=== PATIENT | male | born 1955 | race Caucasian/White ===

== ENCOUNTER 2019-01-03 18:17 | Inpatient (IN) | payer MEDICARE, MEDICAID ==
[~2019-01-03] VITALS: Ht 175.3 cm; Wt 94.0 kg
--- NOTE | 2019-01-03 18:20 | ED.ADGEN ---
Past History Past Medical History: CAD, COPD, CVA, Dementia, Other Smoking: Cigarettes Adult General Chief Complaint Chief Complaint ".. I only smoke 6 cigarettes a day... " ".. Let me out of this fucking stupid hole.. " "God timothy mother fuckers.. I will fucking you up.. I will mess all you up . .... if you touch.. me .. Let me fucking go back to [place]... where I can smoke..."..." Ass holes... stupid" HPI HPI Patient is a 63 year old male who presents with above hx and complaints. Pt. sent for admission to [facility] under Dr. Meyer for mental status change. Pt. are resident of [facility] since 02/19/2016. Pt. reportedly behavior changes, threats, aggression over his tobacco use. Difficult to redirect and argumentative.. Pt. had no recent trauma. Patient has long medical history of osteoarthritis, essential tremor, CVA, coronary artery disease, COPD, muscle weakness, seasonal allergic rhinitis, vitamin D deficiency dysphagia, hyperlipidemia, schizophrenia, osteoarthritis, insomnia, any pain, chronic constipation, and dementia. Patient follows with Dr. Dela Cruz as a primary. Review of Systems Review of Systems Pt. has no specific complaints- but very poor historian Constitutional: Denies fever or chills [] Eyes: Denies change in visual acuity, redness, or eye pain [] HENT: Denies nasal congestion or sore throat [] Respiratory: Denies cough or shortness of breath [] Cardiovascular: No additional information not addressed in HPI [] GI: Denies abdominal pain, nausea, vomiting, bloody stools or diarrhea [] : Denies dysuria or hematuria [] Musculoskeletal: Denies back pain or joint pain [] Integument: Denies rash or skin lesions [] Neurologic: Denies headache, focal weakness or sensory changes [] Endocrine: Denies polyuria or polydipsia [] All other systems were reviewed and found to be within normal limits, except as documented in this note. Family History Family History Currently un available Current Medications Current Medications Current Medications Medications (Trade) Dose Ordered Sig/Malick Start Time Stop Time Status Last Admin Dose Admin Albuterol/ Ipratropium (Duoneb) 3 ml RTQID 01/03/19 21:30 01/05/19 21:29 Diphenhydramine HCl (Benadryl) 50 mg 1X ONCE 01/03/19 19:30 01/03/19 19:31 DC Lactated Ringer's 1,000 ml @ 100 mls/hr Q10H 01/03/19 19:03 01/04/19 05:02 Lorazepam (Ativan Inj) 2 mg 1X ONCE 01/03/19 19:30 01/03/19 19:31 DC Olanzapine (ZyPREXA IM) 10 mg 1X ONCE 01/03/19 20:15 01/03/19 20:16 DC See med list not yet sent by [facility] Allergies Allergies Allergies Coded Allergies Type Severity Reaction Last Updated Verified No Known Drug Allergies 01/03/19 No No known drug allergies Physical Exam Physical Exam Constitutional: no acute distress, non-toxic appearance. [] HENT: Normocephalic, atraumatic, bilateral external ears normal, oropharynx moist, no oral exudates, nose normal. [] Eyes: PERRLA, EOMI, conjunctiva normal, no discharge. [] Neck: Normal range of motion, no tenderness, supple, no stridor. [] Nodule left sided neck Cardiovascular: Tachycardia Heart rate regular rhythm, no murmur [] Lungs & Thorax: Bilateral breath sounds equal apex with scattered wheezes on auscultation [] Abdomen: Bowel sounds normal, soft, no tenderness, no masses, no pulsatile masses. [] Skin: Warm, dry, no erythema, no rash. [] Back: No tenderness, no CVA tenderness. Kyphosis Extremities: No tenderness, no cyanosis, no clubbing, ROM intact, lower leg edema. [] Neurologic: Alert and oriented X 2, moves all extremities on request, distal sensory,, Psychologic: Affect angry, agitated, judgement impaired, mood normal. []Yelling and threatening emergency department staff. Current Patient Data Vital Signs Vital Signs Date Time Temp Pulse Resp B/P (MAP) Pulse Ox O2 Delivery O2 Flow Rate FiO2 01/03/19 18:25 97.9 91 24 92 Room Air Lab Results Laboratory Tests Test 01/03/19 18:40 01/03/19 18:51 White Blood Count 8.6 x10^3/uL (4.0-11.0) Red Blood Count 4.73 x10^6/uL (4.30-5.70) Hemoglobin 13.8 g/dL (13.0-17.5) Hematocrit 40.8 % (39.0-53.0) Mean Corpuscular Volume 86 fL (79-100) Mean Corpuscular Hemoglobin 29 pg (25-35) Mean Corpuscular Hemoglobin Concent 34 g/dL (31-37) Red Cell Distribution Width 14.4 % (11.5-14.5) Platelet Count 156 x10^3/uL (140-400) Neutrophils (%) (Auto) 54 % (31-73) Lymphocytes (%) (Auto) 37 % (24-48) Monocytes (%) (Auto) 6 % (0-9) Eosinophils (%) (Auto) 3 % (0-3) Basophils (%) (Auto) 0 % (0-3) Neutrophils # (Auto) 4.6 x10^3uL (1.8-7.7) Lymphocytes # (Auto) 3.2 x10^3/uL (1.0-4.8) Monocytes # (Auto) 0.6 x10^3/uL (0.0-1.1) Eosinophils # (Auto) 0.2 x10^3/uL (0.0-0.7) Basophils # (Auto) 0.0 x10^3/uL (0.0-0.2) Erythrocyte Sedimentation Rate 5 (0-15) Prothrombin Time 10.5 SEC (9.4-11.4) Prothrombin Time INR 0.9 (0.9-1.1) Activated Partial Thromboplast Time 24 SEC (23-33) Sodium Level 140 mmol/L (136-145) Potassium Level 3.6 mmol/L (3.5-5.1) Chloride Level 103 mmol/L (98-107) Carbon Dioxide Level 31 mmol/L (21-32) Anion Gap 6 (6-14) Blood Urea Nitrogen 5 mg/dL (8-26) L Creatinine 0.8 mg/dL (0.7-1.3) Estimated GFR (Cockcroft-Gault) 98.0 Glucose Level 87 mg/dL (70-99) Calcium Level 8.9 mg/dL (8.5-10.1) Magnesium Level 1.8 mg/dL (1.8-2.4) Total Bilirubin 0.6 mg/dL (0.2-1.0) Direct Bilirubin 0.2 mg/dL (0.0-0.2) Aspartate Amino Transferase (AST) 10 U/L (15-37) L Alanine Aminotransferase (ALT) 18 U/L (16-63) Alkaline Phosphatase 106 U/L (46-116) Creatine Kinase 75 U/L (39-308) Troponin I Quantitative < 0.017 ng/mL (0-0.055) QU-Tcw-B-Type Natriuretic Peptide 47 pg/mL (0-124) Total Protein 6.8 g/dL (6.4-8.2) Albumin 3.6 g/dL (3.4-5.0) Lipase 55 U/L (73-393) L Urine Collection Type Unknown Urine Color Yellow Urine Clarity Clear Urine pH 6.0 Urine Specific [place] <=1.005 Urine Protein Neg (NEG-TRACE) Urine Glucose (UA) Neg mg/dL (NEG) Urine Ketones (Stick) Neg mg/dL (NEG) Urine Blood Neg (NEG) Urine Nitrite Neg (NEG) Urine Bilirubin Neg (NEG) Urine Urobilinogen Dipstick 1 mg/dL (0.2 mg/dL) Urine Leukocyte Esterase Neg (NEG) Urine RBC Occ /HPF (0-2) Urine WBC Occ /HPF (0-4) Urine Squamous Epithelial Cells Occ /LPF Urine Bacteria 0 /HPF (0-FEW) Urine Opiates Screen Neg (NEG) Urine Methadone Screen Neg (NEG) Urine Barbiturates Neg (NEG) Urine Phencyclidine Screen Neg (NEG) Urine Amphetamine/Methamphetamine Neg (NEG) Urine Benzodiazepines Screen Neg (NEG) Urine Cocaine Screen Neg (NEG) Urine Cannabinoids Screen Neg (NEG) Urine Ethyl Alcohol Neg (NEG) EKG EKG I interpretation of EKG shows a sinus tachycardia heart beats per minute. Labs labs have a left axis deviation and a fascicular block. No findings acute STEMI of contralateral changes.[] Radiology/Procedures Radiology/Procedures [[address] [address] IMAGING REPORT Signed PATIENT: MINNIE REDDING ACCOUNT: [id number] : 1955 LOCATION: ER AGE: 63 SEX: M EXAM STATUS: REG ER ORD. PHYSICIAN: DEBRA BAUER MD REASON: Dyspnea, weakness, thyroid nodule PROCEDURE: CT CHEST W/CONTRAST CT chest with contrast TECHNIQUE: Helical multiplanar reconstructed CT imaging of the chest acquired with 100 mL Omnipaque 300 intravenous contrast. HISTORY: Dyspnea, weakness, thyroid nodule. FINDINGS: Ectasia ascending thoracic aorta diameter 3.9 cm. Tortuosity of the aortic arch. Heterogeneous right thyroid lobe 4.5 cm mass with substernal extension with slight deformity of the adjacent trachea. Left coronary calcified plaque. Heart size normal. Esophagus and pulmonary vessels are unremarkable. No enlarged adenopathy in the chest. Left hepatic lobe 4 cm fluid density cyst density 11 units. There is a smaller 1 cm hypodense lesion of the liver dome too small to characterize most likely an additional cyst. 1 cm left renal upper pole cyst with a density of 40 units. Small left renal lower pole calculus. Mild asymmetric right greater than left gynecomastia. Mild upper lobe paraseptal pulmonary emphysema. Mild upper lobe centrilobular emphysema. No pneumothorax, pulmonary opacities or pleural effusions. Mild areas of groundglass opacities involving the upper lobe apices worse on the right and at the right lower lobe posterior basilar segment. Subacute healing left anterior fourth rib fracture. IMPRESSION: 1. Pulmonary emphysema upper lobes. Groundglass opacities at the upper lobes and right lower lobe could represent atypical infection or pneumonitis. Per Fleischner guidelines consider follow-up CT imaging in 3-6 months to document that these remain stable or resolve to exclude the possibility of low-grade adenocarcinoma. 2. 4.5 cm right thyroid lobe mass with substernal extension. Malignancy is not excluded. 3. Subacute healing left anterior fourth rib fracture. Electronically signed by: Caty Ramirez MD (01/03/2019 10:17 PM) [facility] DICTATED AND SIGNED BY: CATY RAMIREZ MD DATE: 01/03/192216 CC: DEBRA BAUER MD; AMANDA WILDER MD ~ [facility] [address] [place] [address] IMAGING REPORT Signed PATIENT: MINNIE REDDING ACCOUNT: [id number] : 1955 LOCATION: ER AGE: 63 SEX: M EXAM STATUS: REG ER ORD. PHYSICIAN: DEBRA BAUER MD REASON: dyspnea PROCEDURE: PORTABLE CHEST 1V Exam: Chest one view INDICATION: Dyspnea TECHNIQUE: Frontal view of the chest Comparisons: CT 02/11/2018 FINDINGS: Rounded opacity in the right pretracheal region measuring approximately 2.3 cm, likely relates to thyroid nodule seen on prior CT. The cardiomediastinal silhouette and pulmonary vessels are within normal limits. The lung and pleural spaces are clear. IMPRESSION: 1. No acute cardiopulmonary process. 2. Right paratracheal nodule likely relates to thyroid nodule seen on prior chest CT further evaluation with nonemergent thyroid ultrasound is recommended. Electronically signed by: Samra Cotter MD (01/03/2019 8:58 PM) [facility] DICTATED AND SIGNED BY: SAMRA COTTER MD DATE: 01/03/192057 CC: DEBRA BAUER MD; AMANDA WILDER MD ~ ][place] [address] IMAGING REPORT Signed PATIENT: MINNIE REDDING ACCOUNT: [id number] : 1955 LOCATION: ER AGE: 63 SEX: M EXAM STATUS: REG ER ORD. PHYSICIAN: DEBRA BAUER MD REASON: Mental status change, headache, neck pain PROCEDURE: CT HEAD AND CERVICAL SPINE WO Exam: CT head and cervical spine INDICATION: Mental status change TECHNIQUE: Sequential axial images through the head and cervical spine were obtained without the administration of IV contrast. Comparisons: 12/09/2018 FINDINGS: Head: No focal parenchymal lesion or hemorrhage is identified. There is no midline shift or sulcal effacement. No acute vascular territory infarction is identified. Kendall-white distinction is preserved. Stable prominence of the ventricular system. The basal cisterns are well maintained. The visualized portions of the paranasal sinuses and mastoid air cells are well-pneumatized. No acute fractures. Cervical spine: There is straightening of the cervical spine which may be positional. Vertebral body heights are well-maintained. Fracture through the cervical spine is not identified. Multilevel spondylotic changes in the cervical spine causing moderate to severe bilateral neural foraminal stenosis at C3-C4 C4-C5, C5-C6, C6-C7. 3.7 x 2.9 cm hypoattenuating nodule in the left lobe of the thyroid gland. IMPRESSION: 1. No acute intracranial abnormality. 2. Negative CT C-spine for acute traumatic injury. Spondylotic changes described above. 3. A 3.7 x 2.9 cm hypoattenuating nodule in the left lobe of the thyroid gland incompletely evaluated on this exam. Further evaluation with nonemergent thyroid ultrasound is recommended. Exposure: One or more of the following in the visualized dose reduction techniques were utilized for this examination: 1. Automated exposure control 2. Adjustment of the MA and/or KV according to patient size Use of iterative of reconstructive technique Electronically signed by: Samra Cotter MD (01/03/2019 8:43 PM) [facility] DICTATED AND SIGNED BY: SAMRA COTTER MD DATE: 01/03/192042 CC: DEBRA BAUER MD; AMANDA WILDER MD ~ Course & Med Decision Making Course & Med Decision Making Pertinent Labs and Imaging studies reviewed. (See chart for details) Pt. admitted to [facility], Dr. Meyer and Consult to Dr. Newell - for medical issues. [] Final Impression Final Impression 1. Mental Status change[] 2. Disruptive behavior- Aggressive, Threatening, 3. Thyroid Nodule Lt. 3.7 x 2.9 cm 4, Pulmonary Nodule 5. Dementia 6. Tob. Use and Abuse Dragon Disclaimer Dragon Disclaimer This electronic medical record was generated, in whole or in part, using a voice recognition dictation system. Dragon Disclaimer This chart was dictated in whole or in part using Voice Recognition software in a busy, high-work load, and often noisy Emergency Department environment. It may contain unintended and wholly unrecognized errors or omissions. Dragon Disclaimer This chart was dictated in whole or in part using Voice Recognition software in a busy, high-work load, and often noisy Emergency Department environment. It may contain unintended and wholly unrecognized errors or omissions. DEBRA BAUER MD Jan 03, 2019 18:20
[2019-01-03] MEDS ORDERED: IV RINGERS SOLUTION,LACTATED 1,000 ML IV SCH (19:03)
[2019-01-03] MEDS ORDERED: diphenhydrAMINE 50 MG/ML VIAL IVP ONE (19:30)
[2019-01-03 19:43] LABS: BASO % 0 % (0-3); EOS # 0.2 x10^3/uL (0.0-0.7); EOS % 3 % (0-3); HEMATOCRIT 40.8 % (39.0-53.0); HEMOGLOBIN 13.8 g/dL (13.0-17.5); LYMPH # 3.2 x10^3/uL (1.0-4.8); LYMPH % 37 % (24-48); MEAN CORPUSCULAR HEMOGLOBIN 29 pg (25-35); MEAN CORPUSCULAR HGB CONC 34 g/dL (31-37); MEAN CORPUSCULAR VOLUME 86 fL (79-100); MONO # 0.6 x10^3/uL (0.0-1.1); MONO % 6 % (0-9); NEUT # 4.6 x10^3uL (1.8-7.7); NEUT % 54 % (31-73); PLATELET COUNT 156 x10^3/uL (140-400); RED BLOOD COUNT 4.73 x10^6/uL (4.30-5.70); RED CELL DISTRIBUTION WIDTH 14.4 % (11.5-14.5); WHITE BLOOD COUNT 8.6 x10^3/uL (4.0-11.0)
[2019-01-03 19:54] LABS: BACTERIA,URINE 0 /HPF (0-FEW); BILIRUBIN,URINE NEG (NEG); CLARITY,URINE CLEAR; COLOR,URINE YELLOW; GLUCOSE,URINE NEG (NEG); NITRITE,URINE NEG (NEG); RBC,URINE OCC /HPF (0-2); SQUAMOUS EPITHELIAL CELL,UR OCC /LPF; UROBILINOGEN,URINE 1 mg/dL (0.2 mg/dL); WBC,URINE OCC /HPF (0-4)
[2019-01-03 19:59] LABS: AMPHETAMINE/METHAMPHETAMINE NEG (NEG); BARBITURATES NEG (NEG); BENZODIAZEPINES NEG (NEG); CANNABINOIDS NEG (NEG); COCAINE NEG (NEG); METHADONE NEG (NEG); OPIATES NEG (NEG); PHENCYCLIDINE NEG (NEG)
[2019-01-03 20:12] LABS: ALBUMIN 3.6 g/dL (3.4-5.0); CALCIUM 8.9 mg/dL (8.5-10.1); CREATININE 0.8 mg/dL (0.7-1.3); DIRECT BILIRUBIN 0.2 mg/dL (0.0-0.2); MAGNESIUM 1.8 mg/dL (1.8-2.4); POTASSIUM 3.6 mmol/L (3.5-5.1); TOTAL BILIRUBIN 0.6 mg/dL (0.2-1.0); TOTAL PROTEIN 6.8 g/dL (6.4-8.2)
[2019-01-03] MEDS ORDERED: OLANZapine IM 10 MG VIAL. IM ONE (20:15)
--- NOTE | 2019-01-03 20:46 | RAD ---
Exam: CT head and cervical spine INDICATION: Mental status change TECHNIQUE: Sequential axial images through the head and cervical spine were obtained without the administration of IV contrast. Comparisons: 12/09/2018 FINDINGS: Head: No focal parenchymal lesion or hemorrhage is identified. There is no midline shift or sulcal effacement. No acute vascular territory infarction is identified. Kendall-white distinction is preserved. Stable prominence of the ventricular system. The basal cisterns are well maintained. The visualized portions of the paranasal sinuses and mastoid air cells are well-pneumatized. No acute fractures. Cervical spine: There is straightening of the cervical spine which may be positional. Vertebral body heights are well-maintained. Fracture through the cervical spine is not identified. Multilevel spondylotic changes in the cervical spine causing moderate to severe bilateral neural foraminal stenosis at C3-C4 C4-C5, C5-C6, C6-C7. 3.7 x 2.9 cm hypoattenuating nodule in the left lobe of the thyroid gland. IMPRESSION: 1. No acute intracranial abnormality. 2. Negative CT C-spine for acute traumatic injury. Spondylotic changes described above. 3. A 3.7 x 2.9 cm hypoattenuating nodule in the left lobe of the thyroid gland incompletely evaluated on this exam. Further evaluation with nonemergent thyroid ultrasound is recommended. Exposure: One or more of the following in the visualized dose reduction techniques were utilized for this examination: 1. Automated exposure control 2. Adjustment of the MA and/or KV according to patient size Use of iterative of reconstructive technique Electronically signed by: Samra Jama MD (01/03/2019 8:43 PM) [facility]
[2019-01-03 20:52] LABS: SEDIMENTATION RATE 5 (0-15)
--- NOTE | 2019-01-03 21:01 | RAD ---
Exam: Chest one view INDICATION: Dyspnea TECHNIQUE: Frontal view of the chest Comparisons: CT 02/11/2018 FINDINGS: Rounded opacity in the right pretracheal region measuring approximately 2.3 cm, likely relates to thyroid nodule seen on prior CT. The cardiomediastinal silhouette and pulmonary vessels are within normal limits. The lung and pleural spaces are clear. IMPRESSION: 1. No acute cardiopulmonary process. 2. Right paratracheal nodule likely relates to thyroid nodule seen on prior chest CT further evaluation with nonemergent thyroid ultrasound is recommended. Electronically signed by: Samra Jama MD (01/03/2019 8:58 PM) [facility]
[2019-01-03] MEDS ORDERED: CONTRAST GIVEN MC PRN (21:15)
[2019-01-03] MEDS: IPRATRPIUM/ALBUTEROL 0.5/2.5MG 3 ML NEBU. NEB SCH (21:30)
[2019-01-03] MEDS ORDERED: IOHEXOL 300 MG/ML 75 ML VIAL. IV ONE (21:30)
[2019-01-03] MEDS ORDERED: IOHEXOL 350 MG/ML 100 ML VIAL. IV ONE (21:30)
--- NOTE | 2019-01-03 22:20 | RAD ---
CT chest with contrast TECHNIQUE: Helical multiplanar reconstructed CT imaging of the chest acquired with 100 mL Omnipaque 300 intravenous contrast. HISTORY: Dyspnea, weakness, thyroid nodule. FINDINGS: Ectasia ascending thoracic aorta diameter 3.9 cm. Tortuosity of the aortic arch. Heterogeneous right thyroid lobe 4.5 cm mass with substernal extension with slight deformity of the adjacent trachea. Left coronary calcified plaque. Heart size normal. Esophagus and pulmonary vessels are unremarkable. No enlarged adenopathy in the chest. Left hepatic lobe 4 cm fluid density cyst density 11 units. There is a smaller 1 cm hypodense lesion of the liver dome too small to characterize most likely an additional cyst. 1 cm left renal upper pole cyst with a density of 40 units. Small left renal lower pole calculus. Mild asymmetric right greater than left gynecomastia. Mild upper lobe paraseptal pulmonary emphysema. Mild upper lobe centrilobular emphysema. No pneumothorax, pulmonary opacities or pleural effusions. Mild areas of groundglass opacities involving the upper lobe apices worse on the right and at the right lower lobe posterior basilar segment. Subacute healing left anterior fourth rib fracture. IMPRESSION: 1. Pulmonary emphysema upper lobes. Groundglass opacities at the upper lobes and right lower lobe could represent atypical infection or pneumonitis. Per Fleischner guidelines consider follow-up CT imaging in 3-6 months to document that these remain stable or resolve to exclude the possibility of low-grade adenocarcinoma. 2. 4.5 cm right thyroid lobe mass with substernal extension. Malignancy is not excluded. 3. Subacute healing left anterior fourth rib fracture. Electronically signed by: Zane Ramirez MD (01/03/2019 10:17 PM) [facility]
[2019-01-03 23:44] VITALS: BP 116/49
[2019-01-04] MEDS ORDERED: METHYL SALICYLATE/MENTHOL TOPICAL OINTMENT 29GM TUBE. TP PRN (00:45)
[2019-01-04] MEDS ORDERED: MAGNESIUM HYDROXIDE 2,400 MG/30 ML ORAL.SUSP. PO PRN (00:45)
[2019-01-04] MEDS ORDERED: MAG HYDROX/AL HYDROX/SIMETH 30 ML ORAL.SUSP PO PRN (00:45)
[2019-01-04] MEDS ORDERED: MAGN2400 PO (01:22)
[2019-01-04] MEDS ORDERED: LOPE2TAB27 PO (01:22)
[2019-01-04] MEDS ORDERED: LUTE10TA2 PO (01:22)
[2019-01-04] MEDS ORDERED: HALO5TAB PO (01:22)
[2019-01-04] MEDS ORDERED: DIVA500T17 PO (01:22)
[2019-01-04] MEDS ORDERED: CHOL100013 PO (01:22)
[2019-01-04] MEDS ORDERED: CETI10TA22 PO (01:22)
[2019-01-04] MEDS ORDERED: ALBU2.5V5 NEB (01:22)
[2019-01-04] MEDS ORDERED: ACET500T68 PO (01:22)
[2019-01-04] MEDS ORDERED: GABA-586 PO (01:22)
[2019-01-04] MEDS ORDERED: ATOR10TA60 PO (01:22)
[2019-01-04] MEDS ORDERED: NYST60PO TP (01:22)
[2019-01-04] MEDS ORDERED: MULT1TAB52 PO (01:22)
[2019-01-04] MEDS ORDERED: NITR0.4T SL (01:22)
[2019-01-04] MEDS ORDERED: DEXT15DR5 OU (01:22)
[2019-01-04] MEDS ORDERED: BENZ2TAB5 PO (01:22)
[2019-01-04] MEDS ORDERED: HALO10TA PO (01:22)
[2019-01-04] MEDS ORDERED: LORA-254 PO (01:22)
[2019-01-04] MEDS ORDERED: TRIH5TAB2 PO (01:22)
[2019-01-04] MEDS ORDERED: MIRT15TA3 PO (01:22)
[2019-01-04] MEDS ORDERED: RISP1TAB43 PO (01:22)
[2019-01-04] MEDS ORDERED: ASPI-612 PO (01:22)
[2019-01-04] MEDS ORDERED: TRAM50TA PO (01:22)
[2019-01-04] MEDS ORDERED: ALBUTEROL SULFATE 2.5 MG/3 ML NEBU. NEB PRN (01:30)
[2019-01-04] MEDS ORDERED: NYSTATIN TOPICAL POWDER 15GM BOTTLE. TP PRN (01:30)
[2019-01-04] MEDS ORDERED: ACETAMINOPHEN 500 MG TABLET PO PRN (01:30)
[2019-01-04] MEDS ORDERED: LORazepam 0.5 MG TABLET PO PRN (01:30)
[2019-01-04] MEDS ORDERED: NON FORMULARY ITEM (Magnesium Hydroxide (Milk Of Magnesia) 2,400 MG) PO PRN (01:30)
[2019-01-04] MEDS ORDERED: NITROGLYCERIN SUBLINGUAL 0.4 MG BOTTLE OF 25. SL PRN (01:30)
[2019-01-04] MEDS ORDERED: traMADol 50 MG TABLET PO PRN (01:30)
[2019-01-04] MEDS ORDERED: LOPERAMIDE 2 MG CAPSULE PO PRN (01:45)
[2019-01-04 02:08] LABS: VAL ACID 27 mcg/mL (50-100)
[2019-01-04 06:02] VITALS: BP 116/68
--- NOTE | 2019-01-04 06:41 | EKG ---
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
[2019-01-04] MEDS: IPRATRPIUM/ALBUTEROL 0.5/2.5MG 3 ML NEBU. NEB SCH ×4 (08:00→20:00)
[2019-01-04] MEDS ORDERED: LUTEIN PO SCH (09:00)
[2019-01-04] MEDS: POLYVINYL ALCOHOL 1.4% OPHTH SOLUTION 15ML BOTTLE. OU SCH ×3 (10:02→19:39)
[2019-01-04] MEDS: CETIRIZINE HCL 10 MG TABLET PO SCH (10:03)
[2019-01-04] MEDS: ASPIRIN ENTERIC COATED 81 MG TABLET.DR. PO SCH (10:03)
[2019-01-04] MEDS: MULTIVITAMIN with MINERAL TABLET. PO SCH (10:03)
[2019-01-04] MEDS: HALOPERIDOL 5 MG TABLET PO SCH ×3 (10:03→19:39)
[2019-01-04] MEDS: NICOTINE 21MG PATCH. TD SCH (10:03)
[2019-01-04] MEDS: CHOLECALCIFEROL (VITAMIN D3) 1,000 UNIT TABLET PO SCH (10:03)
[2019-01-04] MEDS: GABAPENTIN 300 MG CAPSULE. PO SCH ×2 (10:03→19:36)
[2019-01-04] MEDS: BENZTROPINE MESYLATE 1 MG TABLET PO SCH ×2 (10:04→19:35)
[2019-01-04] MEDS: TRIHEXYPHENIDYL 5 MG PO SCH ×2 (10:29→19:35)
[2019-01-04] MEDS: MIRTAZAPINE 15 MG TABLET PO SCH (19:39)
[2019-01-04] MEDS: ATORVASTATIN CALCIUM 10 MG TABLET. PO SCH (19:39)
[2019-01-04] MEDS: risperiDONE 1 MG TABLET. PO SCH (19:39)
[2019-01-04] MEDS: DIVALPROEX ER 500 MG TAB.ER.24H PO SCH (19:39)
[2019-01-04] MEDS ORDERED: DIVALPROEX ER 500 MG TAB.ER.24H PO SCH (21:00)
--- NOTE | 2019-01-04 22:03 | PDOC ---
Exam Note: Vahid Note: Please also refer to the separate dictated note~for this date of service dictated separately. Discussed the patient with Nursing staff reviewed the chart.~Reviewed interim history and current functioning. Reviewed vital signs,~Labs/ Radiology~and current medications noted below. Continue current treatment with the changes noted in the dictated addendum note Assessment: Vital Signs/I&O: Vital Signs Date Time Temp Pulse Resp B/P (MAP) Pulse Ox O2 Delivery O2 Flow Rate FiO2 01/04/19 12:45 96 Room Air 01/04/19 06:02 97.7 61 18 116/68 (84) Current Medications: Meds: Current Medications Medications (Trade) Dose Ordered Sig/Malick Route PRN Reason Start Time Stop Time Status Last Admin Dose Admin Haloperidol (Haldol) 5 mg [id number] PO 01/04/19 09:00 01/04/19 10:09 Lorazepam (Ativan) 0.5 mg PRN Q8HRS PRN PO ANXIETY / AGITATION 01/04/19 01:30 01/04/19 14:41 Mirtazapine (Remeron) 15 mg QHS PO 01/04/19 21:00 01/04/19 19:39 Risperidone (RisperDAL) 1 mg QHS PO 01/04/19 21:00 01/04/19 19:39 Trihexyphenidyl HCl (Artane) 5 mg BID PO 01/04/19 09:00 01/04/19 19:39 Haloperidol (Haldol) 10 mg QHS PO 01/04/19 21:00 01/04/19 19:39 Aspirin (Aspirin Enteric Coated) 81 mg DAILY PO 01/04/19 09:00 01/04/19 10:09 Atorvastatin Calcium (Lipitor) 10 mg QHS PO 01/04/19 21:00 01/04/19 19:39 Cetirizine HCl (ZyrTEC) 10 mg DAILY PO 01/04/19 09:00 01/04/19 10:09 Gabapentin (Neurontin) 300 mg BID PO 01/04/19 09:00 01/04/19 19:39 Benztropine Mesylate (Cogentin) 2 mg BID PO 01/04/19 09:00 01/04/19 19:39 Vitamin D (Vitamin D3) 3,000 unit DAILY PO 01/04/19 09:00 01/04/19 10:09 Artificial Tears (Artificial Tears) 1 drop TID OU 01/04/19 09:00 01/04/19 19:39 Multivitamins/ Calcium (Thera-M Plus) 1 tab DAILY PO 01/04/19 09:00 01/04/19 10:09 Olanzapine (ZyPREXA ZYDIS) 5 mg PRN Q2HR PRN PO PSYCHOSIS 01/04/19 16:35 01/04/19 16:59 Divalproex Sodium (Depakote Er) 1,000 mg QHS PO 01/04/19 21:00 01/04/19 19:39 I have reviewed the current psychotropics carefully including drug interactions. Risk benefit ratio favors no change other than as noted in my dictated progress note. LEO MERCEDES MD Jan 04, 2019 22:03
[2019-01-04 23:06] LABS: HEMOGLOBIN A1C 5.2 % (4.8-5.6); THYROXINE 7.1 ug/dL (4.5-12.0)
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
--- NOTE | 2019-01-05 02:47 | CONS ---
DATE OF CONSULTATION: REASON FOR CONSULTATION: Medical management. HISTORY OF PRESENT ILLNESS: The patient is a 63-year-old male patient, a resident at [facility] who was [facility] on account of being increasingly agitated and anxious, aggressive towards staff and peers, frequent fall from bed, all this in a background of schizophrenia, unspecified with acute exacerbation. PAST MEDICAL HISTORY: Significant for cerebral infarction with resultant abnormal posture and muscle weakness. He is also known to have osteoarthritis of his knees, essential tremors, hypertension, hyperlipidemia, obesity and tobacco abuse. PAST PSYCHIATRIC HISTORY: Significant for anxiety, depression, schizophrenia. ALLERGIES: He has no known drug allergies. MEDICATIONS: He is currently on following medications: He is on cetirizine or Zyrtec 10 mg daily, albuterol sulfate 2.5 mg 3 mL by nebulizer once a day as needed, atorvastatin calcium 10 mg at bedtime, nitroglycerin 0.4 mg sublingually every 5 minutes x 3, aspirin 81 mg once a day, tramadol 50 mg once a day for pain, Tylenol 500 mg every 6 hours, Depakote extended release 500 mg at bedtime, gabapentin 300 mg twice a day, mirtazapine 15 mg at bedtime, Haldol 10 mg at bedtime, Haldol 5 mg twice a day, risperidone 1 mg at bedtime. He is on lorazepam 0.5 mg every 8 hours, benztropine mesylate 2 mg twice a day, trihexyphenidyl 5 mg twice a day. He is on artificial tears 1 drop to both eyes 3 times a day, loperamide 2 mg every 4 hours as needed for diarrhea, milk of magnesia 30 mL p.o. daily p.r.n. for constipation and nystatin powder applied topically 3 times a day, ergocalciferol, vitamin D3 3000 International Units once a day, multivitamin 1 tablet once a day and Lutein 8 mg p.o. b.i.d. REVIEW OF SYSTEMS: As per history of present illness. PHYSICAL EXAMINATION: GENERAL: On examining him, he was resting on the floor. No apparent respiratory distress. There was no pallor, jaundice, cyanosis or thyromegaly. No jugular venous distension. No limb edema. VITAL SIGNS: Her heart rate was 61, blood pressure was 116/68, temperature was 97.7, respiratory rate was 18 and oxygen saturation was 96% on room air. HEAD, EYES, EARS, NOSE AND THROAT: Showed normocephalic, atraumatic. NECK: Supple. HEART: Showed normal first and second heart sounds with no gallop, rub or murmur. CHEST: Clear to auscultation. No crepitation or rhonchi. ABDOMEN: Distended, soft, nontender. No guarding or rigidity. No organomegaly. All hernial orifice intact. Bowel sounds normal. NEUROLOGIC: He is awake, alert. All his cranial nerves are intact. EXTREMITIES: He moves extremities without difficulty. LABORATORY DATA: Showed a white cell count of 8600, hemoglobin 14, hematocrit 41, MCV 86 and platelet count of 156,000. His serum sodium 140, potassium 3.6, chloride 103, bicarbonate 31, anion gap of 6, BUN 5, creatinine 0.8, estimated GFR was 98 mL per minute. His glucose was 87, calcium was 8.9, magnesium was 1.6, serum iron 56, TIBC was 254, and iron saturation was 92%. His total bilirubin, AST, ALT, alkaline phosphatase were normal. Total protein was 6.8, albumin was 3.6. His lipase was 55. His 25-hydroxyvitamin D was 64.6. TSH was 1.79. Serum triglycerides were 77, total cholesterol 93, LDL was 45, VLDL was 15, and HDL was 33 and the ratio was 2. His prothrombin time 10.5, INR of 0.9, aPTT was 24 and D-dimer was 0.01. Urinalysis was unremarkable. Toxic screen was unremarkable and his treponema pallidum antibodies unreactive. He did have a chest x-ray, which showed that he has no acute cardiopulmonary process, has paratracheal nodule likely related to thyroid nodule seen on the prior chest CT. Further evaluation with an emergent thyroid ultrasound is recommended. His chest CT showed that he has pulmonary emphysema involving both upper lobes, ground glass opacities in the upper lobes and right lower lobe could represent atypical infection or pneumonitis as a 4.5 cm right thyroid lobe mass with substernal extension malignancy is not excluded, subacute healing left anterior fourth rib fracture. CT scan of the head showed no focal parenchymal lesion or hemorrhage is identified. There is no midline shift. There is sulcal effacement, no acute vascular territory infarction identified. Kendall-white differentiation is preserved. Stable prominence of the ventricular system. The basal cisterns are well aerated. The visualized portion of the paranasal sinuses and mastoid air cells are well pneumatized. No acute fracture. There is straightening of the cervical spine, which may be positional. Vertebral body heights are well maintained. Fracture of the cervical spine is not identified. There is a hypoattenuating nodule in the left lobe of the thyroid gland. ASSESSMENT AND PLAN: In summary, this is a 63-year-old male patient who was admitted on account of being extremely aggressive, threatening over his tobacco use, difficult to direct and argumentative. All his lab works and vital signs overall seems to be stable. His CT scan of the chest showed that he has thyroid nodule. Unfortunately, I do not have access to the images himself. I will discuss this with the radiologist who can decide the further management accordingly. Meanwhile from medical point of view, he seemed to be overall stable. Thank you, Dr. Meyer for allowing me to participate in the care of this patient. GLORIA ANGELA MD DR: SAHRA/kayla JOB#: [id number] / [id number]
[2019-01-05] MEDS: IPRATRPIUM/ALBUTEROL 0.5/2.5MG 3 ML NEBU. NEB SCH ×4 (06:22→20:53)
[2019-01-05] MEDS: HALOPERIDOL 5 MG TABLET PO SCH ×3 (08:07→20:09)
[2019-01-05] MEDS: TRIHEXYPHENIDYL 5 MG PO SCH (08:07)
[2019-01-05] MEDS: ASPIRIN ENTERIC COATED 81 MG TABLET.DR. PO SCH (08:07)
[2019-01-05] MEDS: BENZTROPINE MESYLATE 1 MG TABLET PO SCH ×2 (08:07→20:11)
[2019-01-05] MEDS: GABAPENTIN 300 MG CAPSULE. PO SCH ×2 (08:07→20:10)
[2019-01-05] MEDS: NICOTINE 21MG PATCH. TD SCH (08:08)
[2019-01-05] MEDS: CETIRIZINE HCL 10 MG TABLET PO SCH (08:08)
[2019-01-05] MEDS: POLYVINYL ALCOHOL 1.4% OPHTH SOLUTION 15ML BOTTLE. OU SCH ×3 (08:09→20:09)
[2019-01-05] MEDS: MULTIVITAMIN with MINERAL TABLET. PO SCH (08:09)
[2019-01-05] MEDS: CHOLECALCIFEROL (VITAMIN D3) 1,000 UNIT TABLET PO SCH (08:11)
[2019-01-05 15:24] VITALS: BP 111/70
[2019-01-05] MEDS: MIRTAZAPINE 15 MG TABLET PO SCH (20:09)
[2019-01-05] MEDS: risperiDONE 1 MG TABLET. PO SCH (20:10)
[2019-01-05] MEDS: ATORVASTATIN CALCIUM 10 MG TABLET. PO SCH (20:10)
[2019-01-05] MEDS: DIVALPROEX ER 500 MG TAB.ER.24H PO SCH (20:10)
[2019-01-05] MEDS: TRIHEXYPHENIDYL 2 MG TABLET. PO SCH (20:11)
--- NOTE | 2019-01-05 22:06 | PDOC ---
Exam Note: Vahid Note: Please also refer to the separate dictated note~for this date of service dictated separately.~Patient seen individually. Discussed the patient with Nursing staff reviewed the chart.~Reviewed interim history and current functioning. Reviewed vital signs,~Labs/ Radiology~and current medications noted below. Continue current treatment with the changes noted in the dictated addendum note Assessment: Vital Signs/I&O: Vital Signs Date Time Temp Pulse Resp B/P (MAP) Pulse Ox O2 Delivery O2 Flow Rate FiO2 01/05/19 20:54 96 Room Air 01/05/19 15:24 98.2 77 16 111/70 (84) I & O 01/04/19 01/04/19 01/05/19 15:00 23:00 07:00 Intake Total 480 ml 0 ml 240 ml Balance 480 ml 0 ml 240 ml Current Medications: Meds: Current Medications Medications (Trade) Dose Ordered Sig/Malick Route PRN Reason Start Time Stop Time Status Last Admin Dose Admin Trihexyphenidyl HCl (Artane) 2 mg BID PO 01/05/19 21:00 01/05/19 20:11 I have reviewed the current psychotropics carefully including drug interactions. Risk benefit ratio favors no change other than as noted in my dictated progress note. Diagnosis: Problems: (1) Schizophrenia, paranoid, chronic with acute exacerbation (2) Schizoaffective disorder, bipolar type (3) Anxiety disorder (4) Impulse control disorder LEO MERCEDES MD Jan 05, 2019 22:06
--- NOTE | 2019-01-06 00:32 | PN ---
DATE: 01/04/2019 This late entry, 01/04/2019, covers elements not covered in my initial note. SUBJECTIVE: I met with the patient in the evening of 01/04/2019. The patient was also staffed at a treatment team meeting with the entire team. DICTATION ENDS HERE. MAN Cate MERCEDES MD DR: JESSICA/kayla JOB#: [id number] / [id number]
[2019-01-06 05:35] VITALS: BP 116/77
[2019-01-06] MEDS: POLYVINYL ALCOHOL 1.4% OPHTH SOLUTION 15ML BOTTLE. OU SCH ×3 (08:13→19:56)
[2019-01-06] MEDS: BENZTROPINE MESYLATE 1 MG TABLET PO SCH ×2 (08:14→20:22)
[2019-01-06] MEDS: TRIHEXYPHENIDYL 2 MG TABLET. PO SCH ×2 (08:14→20:22)
[2019-01-06] MEDS: ASPIRIN ENTERIC COATED 81 MG TABLET.DR. PO SCH (08:14)
[2019-01-06] MEDS: HALOPERIDOL 5 MG TABLET PO SCH ×3 (08:14→20:22)
[2019-01-06] MEDS: MULTIVITAMIN with MINERAL TABLET. PO SCH (08:15)
[2019-01-06] MEDS: CETIRIZINE HCL 10 MG TABLET PO SCH (08:15)
[2019-01-06] MEDS: CHOLECALCIFEROL (VITAMIN D3) 1,000 UNIT TABLET PO SCH (08:15)
[2019-01-06] MEDS: NICOTINE 7MG PATCH. TD SCH (08:16)
[2019-01-06] MEDS: GABAPENTIN 300 MG CAPSULE. PO SCH ×2 (08:16→20:22)
[2019-01-06 15:45] VITALS: BP 99/62
[2019-01-06 19:50] VITALS: BP 103/61
[2019-01-06] MEDS: risperiDONE 1 MG TABLET. PO SCH (20:22)
[2019-01-06] MEDS: CARBIDOPA/LEVODOPA 25/100MG TABLET PO SCH (20:22)
[2019-01-06] MEDS: DIVALPROEX ER 500 MG TAB.ER.24H PO SCH (20:22)
[2019-01-06] MEDS: ATORVASTATIN CALCIUM 10 MG TABLET. PO SCH (20:23)
[2019-01-06] MEDS: MIRTAZAPINE 15 MG TABLET PO SCH (20:23)
[2019-01-06] MEDS: cloZAPine 25 MG TABLET PO SCH (20:23)
[2019-01-06] MEDS ORDERED: cloZAPine 25 MG TABLET PO SCH (21:00)
--- NOTE | 2019-01-06 21:56 | PDOC ---
Exam Note: Vahid Note: Please also refer to the separate dictated note~for this date of service dictated separately.~Patient seen individually. Discussed the patient with Nursing staff reviewed the chart.~Reviewed interim history and current functioning. Reviewed vital signs,~Labs/ Radiology~and current medications noted below. Continue current treatment with the changes noted in the dictated addendum note Assessment: Vital Signs/I&O: Vital Signs Date Time Temp Pulse Resp B/P (MAP) Pulse Ox O2 Delivery O2 Flow Rate FiO2 01/06/19 19:50 97.2 67 16 103/61 (75) 95 Room Air I & O 01/05/19 01/05/19 01/06/19 15:00 23:00 07:00 Intake Total 480 ml 480 ml Balance 480 ml 480 ml Current Medications: Meds: Current Medications Medications (Trade) Dose Ordered Sig/Malick Route PRN Reason Start Time Stop Time Status Last Admin Dose Admin Nicotine (Nicoderm Cq 7mg) 1 patch DAILY TD 01/06/19 09:00 01/06/19 08:18 Clozapine (Clozaril) 25 mg HS PO 01/06/19 21:00 01/06/19 20:23 Carbidopa/Levodopa (Sinemet 25/100) 1 tab TID PO 01/06/19 21:00 01/06/19 20:23 I have reviewed the current psychotropics carefully including drug interactions. Risk benefit ratio favors no change other than as noted in my dictated progress note. Diagnosis: Problems: (1) Schizoaffective disorder, bipolar type (2) Anxiety disorder (3) Impulse control disorder (4) Schizophrenia, paranoid, chronic with acute exacerbation LEO MERCEDES MD Jan 06, 2019 21:56
[2019-01-07 05:52] VITALS: BP 112/74
[2019-01-07] MEDS: NICOTINE 7MG PATCH. TD SCH (08:09)
[2019-01-07] MEDS: BENZTROPINE MESYLATE 1 MG TABLET PO SCH ×2 (08:10→20:37)
[2019-01-07] MEDS: ASPIRIN ENTERIC COATED 81 MG TABLET.DR. PO SCH (08:10)
[2019-01-07] MEDS: HALOPERIDOL 5 MG TABLET PO SCH ×3 (08:10→20:37)
[2019-01-07] MEDS: POLYVINYL ALCOHOL 1.4% OPHTH SOLUTION 15ML BOTTLE. OU SCH ×3 (08:10→20:38)
[2019-01-07] MEDS: GABAPENTIN 300 MG CAPSULE. PO SCH ×2 (08:11→20:37)
[2019-01-07] MEDS: CARBIDOPA/LEVODOPA 25/100MG TABLET PO SCH ×3 (08:11→20:37)
[2019-01-07] MEDS: MULTIVITAMIN with MINERAL TABLET. PO SCH (08:11)
[2019-01-07] MEDS: CHOLECALCIFEROL (VITAMIN D3) 1,000 UNIT TABLET PO SCH (08:12)
[2019-01-07] MEDS: CETIRIZINE HCL 10 MG TABLET PO SCH (08:12)
[2019-01-07] MEDS: ACETAMINOPHEN 325 MG TABLET PO PRN (09:09)
[2019-01-07 10:01] LABS: BASO # 0.1 x10^3/uL (0.0-0.2); BASO % 1 % (0-3); EOS # 0.3 x10^3/uL (0.0-0.7); EOS % 3 % (0-3); HEMATOCRIT 42.7 % (39.0-53.0); HEMOGLOBIN 14.3 g/dL (13.0-17.5); LYMPH # 2.6 x10^3/uL (1.0-4.8); LYMPH % 32 % (24-48); MEAN CORPUSCULAR HEMOGLOBIN 29 pg (25-35); MEAN CORPUSCULAR HGB CONC 34 g/dL (31-37); MEAN CORPUSCULAR VOLUME 87 fL (79-100); MONO # 0.4 x10^3/uL (0.0-1.1); MONO % 5 % (0-9); NEUT # 4.8 x10^3uL (1.8-7.7); NEUT % 59 % (31-73); PLATELET COUNT 156 x10^3/uL (140-400); RED BLOOD COUNT 4.89 x10^6/uL (4.30-5.70); RED CELL DISTRIBUTION WIDTH 14.9 % (11.5-14.5); WHITE BLOOD COUNT 8.1 x10^3/uL (4.0-11.0)
[2019-01-07 10:13] LABS: ALBUMIN 3.4 g/dL (3.4-5.0); ALK PHOS 107 U/L (46-116); ALT (SGPT) 6 U/L (16-63); ANION GAP 8 (6-14); AST (SGOT) 13 U/L (15-37); BLOOD UREA NITROGEN 13 mg/dL (8-26); BUN/CREATININE RATIO 14 (6-20); CALCIUM 9.1 mg/dL (8.5-10.1); CARBON DIOXIDE 28 mmol/L (21-32); CHLORIDE 107 mmol/L (98-107); CREATININE 0.9 mg/dL (0.7-1.3); GFR 85.5; GLUCOSE 132 mg/dL (70-99); SODIUM 143 mmol/L (136-145); TOTAL BILIRUBIN 0.6 mg/dL (0.2-1.0); TOTAL PROTEIN 6.8 g/dL (6.4-8.2)
[2019-01-07 10:16] LABS: VAL ACID 38 mcg/mL (50-100)
[2019-01-07 15:59] VITALS: BP 107/74
[2019-01-07] MEDS: MIRTAZAPINE 15 MG TABLET PO SCH (20:37)
[2019-01-07] MEDS: DIVALPROEX ER 500 MG TAB.ER.24H PO SCH (20:37)
[2019-01-07] MEDS: ATORVASTATIN CALCIUM 10 MG TABLET. PO SCH (20:37)
[2019-01-07] MEDS: cloZAPine 25 MG TABLET PO SCH (20:37)
[2019-01-07] MEDS: risperiDONE 1 MG TABLET. PO SCH (20:37)
--- NOTE | 2019-01-07 21:00 | PDOC ---
Exam Note: Vahid Note: Please also refer to the separate dictated note~for this date of service dictated separately.~Patient seen individually. Discussed the patient with Nursing staff reviewed the chart.~Reviewed interim history and current functioning. Reviewed vital signs,~Labs/ Radiology~and current medications noted below. Continue current treatment with the changes noted in the dictated addendum note Assessment: Vital Signs/I&O: Vital Signs Date Time Temp Pulse Resp B/P (MAP) Pulse Ox O2 Delivery O2 Flow Rate FiO2 01/07/19 15:59 98.3 77 16 107/74 (85) 99 Room Air I & O 01/06/19 01/06/19 01/07/19 14:59 22:59 06:59 Intake Total 240 ml 240 ml Balance 240 ml 240 ml Labs: Laboratory Tests Test 01/07/19 09:53 White Blood Count 8.1 x10^3/uL (4.0-11.0) Red Blood Count 4.89 x10^6/uL (4.30-5.70) Hemoglobin 14.3 g/dL (13.0-17.5) Hematocrit 42.7 % (39.0-53.0) Mean Corpuscular Volume 87 fL (79-100) Mean Corpuscular Hemoglobin 29 pg (25-35) Mean Corpuscular Hemoglobin Concent 34 g/dL (31-37) Red Cell Distribution Width 14.9 % (11.5-14.5) H Platelet Count 156 x10^3/uL (140-400) Neutrophils (%) (Auto) 59 % (31-73) Lymphocytes (%) (Auto) 32 % (24-48) Monocytes (%) (Auto) 5 % (0-9) Eosinophils (%) (Auto) 3 % (0-3) Basophils (%) (Auto) 1 % (0-3) Neutrophils # (Auto) 4.8 x10^3uL (1.8-7.7) Lymphocytes # (Auto) 2.6 x10^3/uL (1.0-4.8) Monocytes # (Auto) 0.4 x10^3/uL (0.0-1.1) Eosinophils # (Auto) 0.3 x10^3/uL (0.0-0.7) Basophils # (Auto) 0.1 x10^3/uL (0.0-0.2) Sodium Level 143 mmol/L (136-145) Potassium Level 4.0 mmol/L (3.5-5.1) Chloride Level 107 mmol/L (98-107) Carbon Dioxide Level 28 mmol/L (21-32) Anion Gap 8 (6-14) Blood Urea Nitrogen 13 mg/dL (8-26) Creatinine 0.9 mg/dL (0.7-1.3) Estimated GFR (Cockcroft-Gault) 85.5 BUN/Creatinine Ratio 14 (6-20) Glucose Level 132 mg/dL (70-99) H Calcium Level 9.1 mg/dL (8.5-10.1) Total Bilirubin 0.6 mg/dL (0.2-1.0) Aspartate Amino Transferase (AST) 13 U/L (15-37) L Alanine Aminotransferase (ALT) 6 U/L (16-63) L Alkaline Phosphatase 107 U/L (46-116) Total Protein 6.8 g/dL (6.4-8.2) Albumin 3.4 g/dL (3.4-5.0) Albumin/Globulin Ratio 1.0 (1.0-1.7) Valproic Acid Level 38 mcg/mL (50-100) L Valproic Acid Last Dose Date 01/06/19 Valproic Acid Last Dose Time 2100 Current Medications: I have reviewed the current psychotropics carefully including drug interactions. Risk benefit ratio favors no change other than as noted in my dictated progress note. Diagnosis: Problems: (1) Schizoaffective disorder, bipolar type (2) Anxiety disorder (3) Impulse control disorder (4) Schizophrenia, paranoid, chronic with acute exacerbation LEO MERCEDES MD Jan 07, 2019 21:00
--- NOTE | 2019-01-07 22:22 | PN ---
DATE: 01/05/2019 PSYCHIATRIC PROGRESS NOTE This is a late entry 01/05/2019, covers the elements not covered in my initial note. SUBJECTIVE: I met with the patient in the evening of 01/05/2019. The patient slept 5-1/2 hours previous night. He has significant tremors and questionable Parkinson's. We will consult Dr. Conway, Neurology. Previous night, he was cursing, agitated with marked mood lability, but took his medications reluctantly. 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 Later, he seemed to be doing better with thanking staff. He is oriented, knew he was in [place]. The year is 2019. He remains withdrawn to his room, has active hallucinations, marked paranoia, nursing staff wondered whether he has intellectual disability, but that was not evident in the history. Questionable past history of substance abuse will need to be verified. REVIEW OF SYSTEMS: No CV, , pulmonary, eye, ENT system symptoms on review. Reliability is poor. MENTAL STATUS EXAM: Oriented to himself and situation. Speech coherent, rapid. Abstraction fair, computation impaired, language function intact, attention span short. Mood and affect marked mood lability is evident. LABORATORY DATA: Reviewed. IMPRESSION: Schizophrenia, chronic paranoid with acute exacerbation, schizoaffective disorder, bipolar type, mixed with psychotic features. Rest unchanged from initial note. PLAN: We had a lengthy discussion in review of his psychotropics. He has remained psychotic despite fairly significant dosages of Haldol approximately 20 mg a day along with Depakote level was subtherapeutic, but it is being adjusted, but if symptoms persist. He is on benztropine 2 mg b.i.d., and Artane 5 mg b.i.d. for tremors. We will see what Dr. Conway suggests but perhaps one of these should be discontinued and the other reduced in time. We will have a pharmacy consult and if they have no drug interactions or clinical concerns about starting Clozaril, we will go ahead and start Clozaril 25 mg at bedtime. Check CBC, absolute neutrophil count every week on Tuesday. Adjust the Depakote to reach therapeutic level. Consider stopping the Artane as noted post Dr. Conway consult and then reduce the Cogentin and depending on how he does on the Clozaril, later reduce the Haldol as well, which is probably worsening his tremors and Clozaril would be less often issue for this. We will continue to assess as clinically indicated. LEO MERCEDES MD DR: JESSICA/kayla JOB#: [id number] / [id number]
--- NOTE | 2019-01-07 23:58 | PN ---
DATE: 01/06/2019 PSYCHIATRIC PROGRESS NOTE This late entry 01/06/2019 covers elements not covered in my initial note. SUBJECTIVE: I met with the patient in the evening of 01/06/2019. The patient slept 4-1/2 hours previous night. He did have a Neurology consult with Dr. Conway diagnosed with Parkinson's, started on Sinemet and question whether we can go ahead and stop the Artane, which is 2 mg b.i.d. and we will go ahead and do this. For now, continue Cogentin 2 mg b.i.d. and then consider reducing it. There was a significant left hand tremor evident as I met with him. He has been more pleasant, cooperative, and much less psychotic. REVIEW OF SYSTEMS: No CV, , pulmonary, eye, ENT system symptoms on review. MENTAL STATUS EXAM: Reasonably oriented. Speech is coherent, less pressured. Abstraction fair, computation impaired, language function intact, attention span short. Mood and affect remains somewhat withdrawn, but improved. LABORATORY DATA: Reviewed. IMPRESSION: Schizophrenia, chronic paranoid with acute exacerbation; schizoaffective disorder, bipolar type, mixed with psychotic features; Parkinson's disease. Rest as above. PLAN: Stop the Artane and rest of the changes as noted above. Clozaril is being initiated and he remains on Haldol and Risperdal and we will gradually taper off the Risperdal as the Clozaril is adjusted once tolerated. LEO MERCEDES MD DR: JESSICA/kayla JOB#: [id number] / [id number]
[2019-01-08 05:41] VITALS: BP 101/65
[2019-01-08] MEDS: HALOPERIDOL 5 MG TABLET PO SCH ×3 (08:01→21:15)
[2019-01-08] MEDS: CHOLECALCIFEROL (VITAMIN D3) 1,000 UNIT TABLET PO SCH (08:01)
[2019-01-08] MEDS: CETIRIZINE HCL 10 MG TABLET PO SCH (08:01)
[2019-01-08] MEDS: NICOTINE 7MG PATCH. TD SCH (08:01)
[2019-01-08] MEDS: ASPIRIN ENTERIC COATED 81 MG TABLET.DR. PO SCH (08:01)
[2019-01-08] MEDS: BENZTROPINE MESYLATE 1 MG TABLET PO SCH ×2 (08:02→21:15)
[2019-01-08] MEDS: CARBIDOPA/LEVODOPA 25/100MG TABLET PO SCH ×3 (08:02→21:15)
[2019-01-08] MEDS: MULTIVITAMIN with MINERAL TABLET. PO SCH (08:02)
[2019-01-08] MEDS: POLYVINYL ALCOHOL 1.4% OPHTH SOLUTION 15ML BOTTLE. OU SCH ×3 (08:03→21:00)
[2019-01-08] MEDS: GABAPENTIN 300 MG CAPSULE. PO SCH ×2 (08:03→21:20)
[2019-01-08 09:49] LABS: BASO # 0.1 x10^3/uL (0.0-0.2); BASO % 1 % (0-3); EOS # 0.3 x10^3/uL (0.0-0.7); EOS % 4 % (0-3); HEMATOCRIT 42.4 % (39.0-53.0); HEMOGLOBIN 14.4 g/dL (13.0-17.5); LYMPH # 3.1 x10^3/uL (1.0-4.8); LYMPH % 39 % (24-48); MEAN CORPUSCULAR HEMOGLOBIN 30 pg (25-35); MEAN CORPUSCULAR HGB CONC 34 g/dL (31-37); MEAN CORPUSCULAR VOLUME 87 fL (79-100); MONO # 0.4 x10^3/uL (0.0-1.1); MONO % 5 % (0-9); NEUT # 4.1 x10^3uL (1.8-7.7); NEUT % 51 % (31-73); PLATELET COUNT 160 x10^3/uL (140-400); RED BLOOD COUNT 4.88 x10^6/uL (4.30-5.70); RED CELL DISTRIBUTION WIDTH 14.7 % (11.5-14.5)
--- NOTE | 2019-01-08 13:23 | RAD ---
THYROID ULTRASOUND History: Thyroid nodule on CT. Comparison: CT chest with contrast, January 03, 2019. Technique: Multiple grayscale and color Doppler images of the thyroid gland were obtained. Findings: Measurements in length, AP (height), and transverse (width), respectively, unless otherwise stated. The thyroid isthmus measures 4 mm. The right thyroid lobe measures 5.8 x 3.4 x 3.9 cm. There is a heterogeneous mixed cystic and solid nodule of the inferior right thyroid lobe that measures 3 x 2.5 x 2.5 cm. The left thyroid lobe measures 3.3 x 1 x 2 cm. ACR Thyroid Imaging, Reporting And Data System (TI-RADS): White Paper Of The ACR TI-RADS Committee. Journal of the [place] [employer], volume 14, issue 5, pages 587-595 (September 2016). IMPRESSION: Mixed cystic and solid nodule of the inferior right thyroid lobe. Consider further evaluation with ultrasound-guided FNA. Electronically signed by: Tian Mcelroy MD (01/08/2019 1:20 PM) [id number]
[2019-01-08 15:47] VITALS: BP 123/75
[2019-01-08] MEDS: cloZAPine 25 MG TABLET PO SCH (21:15)
[2019-01-08] MEDS: risperiDONE 1 MG TABLET. PO SCH (21:15)
[2019-01-08] MEDS: ATORVASTATIN CALCIUM 10 MG TABLET. PO SCH (21:15)
[2019-01-08] MEDS: DIVALPROEX ER 500 MG TAB.ER.24H PO SCH (21:20)
[2019-01-08] MEDS: MIRTAZAPINE 15 MG TABLET PO SCH (21:20)
--- NOTE | 2019-01-08 22:22 | PDOC ---
Exam Note: Vahid Note: Please also refer to the separate dictated note~for this date of service dictated separately.~Patient seen individually. Discussed the patient with Nursing staff reviewed the chart.~Reviewed interim history and current functioning. Reviewed vital signs,~Labs/ Radiology~and current medications noted below. Continue current treatment with the changes noted in the dictated addendum note Assessment: Vital Signs/I&O: Vital Signs Date Time Temp Pulse Resp B/P (MAP) Pulse Ox O2 Delivery O2 Flow Rate FiO2 01/08/19 15:47 97.2 94 16 123/75 (91) 98 01/07/19 15:59 Room Air I & O 01/07/19 01/07/19 01/08/19 15:00 23:00 07:00 Intake Total 240 ml 240 ml 120 ml Balance 240 ml 240 ml 120 ml Labs: Laboratory Tests Test 01/08/19 09:20 White Blood Count 8.0 x10^3/uL (4.0-11.0) Red Blood Count 4.88 x10^6/uL (4.30-5.70) Hemoglobin 14.4 g/dL (13.0-17.5) Hematocrit 42.4 % (39.0-53.0) Mean Corpuscular Volume 87 fL (79-100) Mean Corpuscular Hemoglobin 30 pg (25-35) Mean Corpuscular Hemoglobin Concent 34 g/dL (31-37) Red Cell Distribution Width 14.7 % (11.5-14.5) H Platelet Count 160 x10^3/uL (140-400) Neutrophils (%) (Auto) 51 % (31-73) Lymphocytes (%) (Auto) 39 % (24-48) Monocytes (%) (Auto) 5 % (0-9) Eosinophils (%) (Auto) 4 % (0-3) H Basophils (%) (Auto) 1 % (0-3) Neutrophils # (Auto) 4.1 x10^3uL (1.8-7.7) Lymphocytes # (Auto) 3.1 x10^3/uL (1.0-4.8) Monocytes # (Auto) 0.4 x10^3/uL (0.0-1.1) Eosinophils # (Auto) 0.3 x10^3/uL (0.0-0.7) Basophils # (Auto) 0.1 x10^3/uL (0.0-0.2) Current Medications: Meds: Current Medications Medications (Trade) Dose Ordered Sig/Malick Route PRN Reason Start Time Stop Time Status Last Admin Dose Admin Divalproex Sodium (Depakote Er) 1,500 mg QHS PO 01/08/19 21:00 01/08/19 21:20 Clozapine (Clozaril) 50 mg HS PO 01/08/19 21:00 01/08/19 21:20 I have reviewed the current psychotropics carefully including drug interactions. Risk benefit ratio favors no change other than as noted in my dictated progress note. Diagnosis: Problems: (1) Schizoaffective disorder, bipolar type (2) Anxiety disorder (3) Impulse control disorder (4) Schizophrenia, paranoid, chronic with acute exacerbation LEO MERCEDES MD Jan 08, 2019 22:21
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
[2019-01-09 06:13] VITALS: BP 127/72
[2019-01-09] MEDS: POLYVINYL ALCOHOL 1.4% OPHTH SOLUTION 15ML BOTTLE. OU SCH ×3 (08:13→19:25)
[2019-01-09] MEDS: ASPIRIN ENTERIC COATED 81 MG TABLET.DR. PO SCH (08:13)
[2019-01-09] MEDS: BENZTROPINE MESYLATE 1 MG TABLET PO SCH ×2 (08:13→19:25)
[2019-01-09] MEDS: MULTIVITAMIN with MINERAL TABLET. PO SCH (08:13)
[2019-01-09] MEDS: CHOLECALCIFEROL (VITAMIN D3) 1,000 UNIT TABLET PO SCH (08:14)
[2019-01-09] MEDS: CETIRIZINE HCL 10 MG TABLET PO SCH (08:14)
[2019-01-09] MEDS: CARBIDOPA/LEVODOPA 25/100MG TABLET PO SCH ×3 (08:14→19:25)
[2019-01-09] MEDS: HALOPERIDOL 5 MG TABLET PO SCH ×3 (08:14→19:26)
[2019-01-09] MEDS: NICOTINE 7MG PATCH. TD SCH (08:15)
[2019-01-09] MEDS: GABAPENTIN 300 MG CAPSULE. PO SCH ×2 (08:15→19:26)
[2019-01-09 16:06] VITALS: BP 110/71
[2019-01-09] MEDS: ATORVASTATIN CALCIUM 10 MG TABLET. PO SCH (19:25)
[2019-01-09] MEDS: MIRTAZAPINE 15 MG TABLET PO SCH (19:25)
[2019-01-09] MEDS: cloZAPine 25 MG TABLET PO SCH (19:26)
[2019-01-09] MEDS: DIVALPROEX ER 500 MG TAB.ER.24H PO SCH (19:26)
[2019-01-09] MEDS: risperiDONE 1 MG TABLET. PO SCH (19:26)
--- NOTE | 2019-01-09 21:48 | PDOC ---
Exam Note: Vahid Note: Please also refer to the separate dictated note~for this date of service dictated separately.~Patient seen individually. Discussed the patient with Nursing staff reviewed the chart.~Reviewed interim history and current functioning. Reviewed vital signs,~Labs/ Radiology~and current medications noted below. Continue current treatment with the changes noted in the dictated addendum note Assessment: Vital Signs/I&O: Vital Signs Date Time Temp Pulse Resp B/P (MAP) Pulse Ox O2 Delivery O2 Flow Rate FiO2 01/09/19 16:06 98.0 88 19 110/71 (84) 94 01/09/19 06:13 Room Air I & O 01/08/19 01/08/19 01/09/19 15:00 23:00 07:00 Intake Total 60 ml 120 ml 100 ml Balance 60 ml 120 ml 100 ml Current Medications: I have reviewed the current psychotropics carefully including drug interactions. Risk benefit ratio favors no change other than as noted in my dictated progress note. Diagnosis: Problems: (1) Schizoaffective disorder, bipolar type (2) Anxiety disorder (3) Impulse control disorder (4) Schizophrenia, paranoid, chronic with acute exacerbation LEO MERCEDES MD Jan 09, 2019 21:48
--- NOTE | 2019-01-10 05:44 | PN ---
DATE: 01/08/2019 PROGRESS NOTE This late entry 01/08/2019 covers elements not covered in my initial note. SUBJECTIVE: I met with the patient evening of 01/08/2019. The patient slept 7-1/4 hours previous night. Previous night, he was actively hallucinating, stating he was hearing voices that were cursing at him. He was complaining of some tactile hallucinations, felt to be were stinging his arm during the day on 01/08/2019 and he was swearing at the dining room, [facility] He then took a nap and then did better. REVIEW OF SYSTEMS: Positive for above. No CV, , pulmonary, eye, ENT system symptoms on review. I met with him at length in his room. MENTAL STATUS EXAMINATION: The patient is reasonably oriented. Speech has some latency, coherent. Abstraction fair, computation impaired, language function intact, attention span short. Mood and affect remains labile and he is still quite paranoid. No suicidal or homicidal ideation. LABORATORY DATA: Reviewed. IMPRESSION: Schizophrenia, chronic paranoid type with acute exacerbation versus schizoaffective disorder, bipolar type, mixed with psychotic features; anxiety disorder, unspecified; impulse control disorder, unspecified; probable post-traumatic stress disorder. PLAN: Absolute neutrophil count is approximately 4000, clinically adequate. We will increase the Clozaril from 25 mg at bedtime to 50 mg at bedtime. Continue Depakote ER that was increased to 1500 mg at bedtime with repeat labs and level in 2 days. Maintain Haldol and Risperdal for now, but then we will taper both of these as the Clozaril stabilizes. Maintain Cogentin, Neurontin, Remeron 15 mg at bedtime and Zyprexa p.r.n. MAN Cate MERCEDES MD DR: JESSICA/kayla JOB#: [id number] / [id number]
[2019-01-10 05:47] VITALS: BP 128/66
[2019-01-10] MEDS: HALOPERIDOL 5 MG TABLET PO SCH ×3 (08:28→20:28)
[2019-01-10] MEDS: MULTIVITAMIN with MINERAL TABLET. PO SCH (08:28)
[2019-01-10] MEDS: BENZTROPINE MESYLATE 1 MG TABLET PO SCH ×2 (08:28→20:28)
[2019-01-10] MEDS: CETIRIZINE HCL 10 MG TABLET PO SCH (08:29)
[2019-01-10] MEDS: CHOLECALCIFEROL (VITAMIN D3) 1,000 UNIT TABLET PO SCH (08:29)
[2019-01-10] MEDS: POLYVINYL ALCOHOL 1.4% OPHTH SOLUTION 15ML BOTTLE. OU SCH ×3 (08:29→23:13)
[2019-01-10] MEDS: NICOTINE 7MG PATCH. TD SCH (08:29)
[2019-01-10] MEDS: CARBIDOPA/LEVODOPA 25/100MG TABLET PO SCH ×3 (08:29→20:28)
[2019-01-10] MEDS: ASPIRIN ENTERIC COATED 81 MG TABLET.DR. PO SCH (08:29)
[2019-01-10] MEDS: GABAPENTIN 300 MG CAPSULE. PO SCH ×2 (08:30→20:29)
[2019-01-10] MEDS: ACETAMINOPHEN 325 MG TABLET PO PRN (09:12)
[2019-01-10 15:45] VITALS: BP 100/65
[2019-01-10] MEDS: cloZAPine 25 MG TABLET PO SCH (20:28)
[2019-01-10] MEDS: risperiDONE 1 MG TABLET. PO SCH (20:28)
[2019-01-10] MEDS: MIRTAZAPINE 15 MG TABLET PO SCH (20:28)
[2019-01-10] MEDS: ATORVASTATIN CALCIUM 10 MG TABLET. PO SCH (20:28)
[2019-01-10] MEDS: DIVALPROEX ER 500 MG TAB.ER.24H PO SCH (20:29)
--- NOTE | 2019-01-10 21:24 | PDOC ---
Exam Note: Vahid Note: Please also refer to the separate dictated note~for this date of service dictated separately.~Patient seen individually. Discussed the patient with Nursing staff reviewed the chart.~Reviewed interim history and current functioning. Reviewed vital signs,~Labs/ Radiology~and current medications noted below. Continue current treatment with the changes noted in the dictated addendum note Assessment: Vital Signs/I&O: Vital Signs Date Time Temp Pulse Resp B/P (MAP) Pulse Ox O2 Delivery O2 Flow Rate FiO2 01/10/19 15:45 98.6 74 16 100/65 (77) 93 01/09/19 06:13 Room Air I & O 01/09/19 01/09/19 01/10/19 15:00 23:00 07:00 Intake Total 840 ml 580 ml Balance 840 ml 580 ml Current Medications: I have reviewed the current psychotropics carefully including drug interactions. Risk benefit ratio favors no change other than as noted in my dictated progress note. Diagnosis: Problems: (1) Schizoaffective disorder, bipolar type (2) Anxiety disorder (3) Impulse control disorder (4) Schizophrenia, paranoid, chronic with acute exacerbation (5) Status post CVA LEO MERCEDES MD Jan 10, 2019 21:24
--- NOTE | 2019-01-10 23:46 | PN ---
DATE: 01/09/2019 PSYCHIATRIC PROGRESS NOTE This late entry, 01/09/2019, covers elements not covered in my initial note. SUBJECTIVE: I met with the patient in the evening of 01/09/2019 at length. Discussed with nursing staff, reviewed the chart. The patient slept 5-3/4 hours previous night. He has been withdrawn to his room, does come out for meals. He talks about tactile hallucinations, believes bees have been stinging his arm and he sees spirits and hears voices of a female, but denies any command hallucinations. He is compliant with his medications. REVIEW OF SYSTEMS: Positive for some tiredness. No CV, , pulmonary, eye system symptoms on review. Reliability varies. MENTAL STATUS EXAM: Oriented to himself and situation. Speech is coherent, abstraction fair, computation impaired, language function intact, attention span short. He remains quite paranoid, psychotic. No suicidal or homicidal ideation. LABORATORY DATA: Reviewed. IMPRESSION: Schizophrenia, chronic paranoid type with acute exacerbation, schizoaffective disorder, bipolar type, mixed with psychotic features, mild cognitive impairment; anxiety disorder, unspecified. PLAN: The patient's Clozaril has been increased to 50 mg at bedtime. Maintain Haldol, Risperdal, Clozaril for now together with Depakote, which has been increased to 1500 mg at bedtime of the ER with repeat labs level awaited on 01/11/2019. Adjust to reach therapeutic level. The patient is on 3 antipsychotics, and once the Clozaril is effective, we will reduce the Haldol and Risperdal. MAN Cate MERCEDES MD DR: JESSICA/kayla JOB#: [id number] / [id number]
[2019-01-11 05:41] VITALS: BP 103/68
[2019-01-11 06:53] LABS: BASO % 1 % (0-3); EOS # 0.3 x10^3/uL (0.0-0.7); EOS % 4 % (0-3); HEMATOCRIT 38.1 % (39.0-53.0); HEMOGLOBIN 13.1 g/dL (13.0-17.5); LYMPH # 2.7 x10^3/uL (1.0-4.8); LYMPH % 38 % (24-48); MEAN CORPUSCULAR HEMOGLOBIN 30 pg (25-35); MEAN CORPUSCULAR HGB CONC 35 g/dL (31-37); MEAN CORPUSCULAR VOLUME 87 fL (79-100); MONO # 0.5 x10^3/uL (0.0-1.1); MONO % 6 % (0-9); NEUT # 3.6 x10^3uL (1.8-7.7); NEUT % 51 % (31-73); PLATELET COUNT 140 x10^3/uL (140-400); RED BLOOD COUNT 4.37 x10^6/uL (4.30-5.70); RED CELL DISTRIBUTION WIDTH 14.7 % (11.5-14.5); WHITE BLOOD COUNT 7.2 x10^3/uL (4.0-11.0)
[2019-01-11 06:57] LABS: ALBUMIN 3.1 g/dL (3.4-5.0); ALK PHOS 84 U/L (46-116); ANION GAP 6 (6-14); AST (SGOT) 12 U/L (15-37); BLOOD UREA NITROGEN 18 mg/dL (8-26); BUN/CREATININE RATIO 23 (6-20); CALCIUM 8.8 mg/dL (8.5-10.1); CARBON DIOXIDE 32 mmol/L (21-32); CHLORIDE 107 mmol/L (98-107); CREATININE 0.8 mg/dL (0.7-1.3); GLUCOSE 83 mg/dL (70-99); POTASSIUM 3.7 mmol/L (3.5-5.1); SODIUM 145 mmol/L (136-145); TOTAL BILIRUBIN 0.4 mg/dL (0.2-1.0); TOTAL PROTEIN 6.2 g/dL (6.4-8.2)
[2019-01-11 07:00] LABS: ALT (SGPT) < 6 U/L (16-63); VAL ACID 62 mcg/mL (50-100)
[2019-01-11] MEDS: ASPIRIN ENTERIC COATED 81 MG TABLET.DR. PO SCH (09:40)
[2019-01-11] MEDS: CETIRIZINE HCL 10 MG TABLET PO SCH (09:40)
[2019-01-11] MEDS: POLYVINYL ALCOHOL 1.4% OPHTH SOLUTION 15ML BOTTLE. OU SCH ×3 (09:40→20:58)
[2019-01-11] MEDS: CARBIDOPA/LEVODOPA 25/100MG TABLET PO SCH ×3 (09:40→20:59)
[2019-01-11] MEDS: CHOLECALCIFEROL (VITAMIN D3) 1,000 UNIT TABLET PO SCH (09:40)
[2019-01-11] MEDS: HALOPERIDOL 5 MG TABLET PO SCH ×3 (09:40→20:58)
[2019-01-11] MEDS: NICOTINE 7MG PATCH. TD SCH (09:41)
[2019-01-11] MEDS: BENZTROPINE MESYLATE 1 MG TABLET PO SCH ×2 (09:41→21:00)
[2019-01-11] MEDS: MULTIVITAMIN with MINERAL TABLET. PO SCH (09:41)
[2019-01-11] MEDS: GABAPENTIN 300 MG CAPSULE. PO SCH ×2 (09:42→20:59)
[2019-01-11 16:26] VITALS: BP 110/72
[2019-01-11] MEDS: ATORVASTATIN CALCIUM 10 MG TABLET. PO SCH (20:58)
[2019-01-11] MEDS: risperiDONE 1 MG TABLET. PO SCH (20:59)
[2019-01-11] MEDS: DIVALPROEX ER 500 MG TAB.ER.24H PO SCH (20:59)
[2019-01-11] MEDS: cloZAPine 25 MG TABLET PO SCH (20:59)
[2019-01-11] MEDS: MIRTAZAPINE 15 MG TABLET PO SCH (20:59)
--- NOTE | 2019-01-11 21:29 | PDOC ---
Exam Note: Vahid Note: Please also refer to the separate dictated note~for this date of service dictated separately.~Patient seen individually. Discussed the patient with Nursing staff reviewed the chart.~Reviewed interim history and current functioning. Reviewed vital signs,~Labs/ Radiology~and current medications noted below. Continue current treatment with the changes noted in the dictated addendum note Assessment: Vital Signs/I&O: Vital Signs Date Time Temp Pulse Resp B/P (MAP) Pulse Ox O2 Delivery O2 Flow Rate FiO2 01/11/19 16:26 97.2 76 16 110/72 (85) 95 Room Air I & O 01/10/19 01/10/19 01/11/19 15:00 23:00 07:00 Intake Total 960 ml 360 ml Balance 960 ml 360 ml Labs: Laboratory Tests Test 01/11/19 06:14 White Blood Count 7.2 x10^3/uL (4.0-11.0) Red Blood Count 4.37 x10^6/uL (4.30-5.70) Hemoglobin 13.1 g/dL (13.0-17.5) Hematocrit 38.1 % (39.0-53.0) L Mean Corpuscular Volume 87 fL (79-100) Mean Corpuscular Hemoglobin 30 pg (25-35) Mean Corpuscular Hemoglobin Concent 35 g/dL (31-37) Red Cell Distribution Width 14.7 % (11.5-14.5) H Platelet Count 140 x10^3/uL (140-400) Neutrophils (%) (Auto) 51 % (31-73) Lymphocytes (%) (Auto) 38 % (24-48) Monocytes (%) (Auto) 6 % (0-9) Eosinophils (%) (Auto) 4 % (0-3) H Basophils (%) (Auto) 1 % (0-3) Neutrophils # (Auto) 3.6 x10^3uL (1.8-7.7) Lymphocytes # (Auto) 2.7 x10^3/uL (1.0-4.8) Monocytes # (Auto) 0.5 x10^3/uL (0.0-1.1) Eosinophils # (Auto) 0.3 x10^3/uL (0.0-0.7) Basophils # (Auto) 0.0 x10^3/uL (0.0-0.2) Sodium Level 145 mmol/L (136-145) Potassium Level 3.7 mmol/L (3.5-5.1) Chloride Level 107 mmol/L (98-107) Carbon Dioxide Level 32 mmol/L (21-32) Anion Gap 6 (6-14) Blood Urea Nitrogen 18 mg/dL (8-26) Creatinine 0.8 mg/dL (0.7-1.3) Estimated GFR (Cockcroft-Gault) 98.0 BUN/Creatinine Ratio 23 (6-20) H Glucose Level 83 mg/dL (70-99) Calcium Level 8.8 mg/dL (8.5-10.1) Total Bilirubin 0.4 mg/dL (0.2-1.0) Aspartate Amino Transferase (AST) 12 U/L (15-37) L Alanine Aminotransferase (ALT) < 6 U/L (16-63) L Alkaline Phosphatase 84 U/L (46-116) Total Protein 6.2 g/dL (6.4-8.2) L Albumin 3.1 g/dL (3.4-5.0) L Albumin/Globulin Ratio 1.0 (1.0-1.7) Valproic Acid Level 62 mcg/mL (50-100) Valproic Acid Last Dose Date 01/10/2019 Valproic Acid Last Dose Time 2100 Current Medications: Meds: Current Medications Medications (Trade) Dose Ordered Sig/Malick Route PRN Reason Start Time Stop Time Status Last Admin Dose Admin Benztropine Mesylate (Cogentin) 1 mg BID PO 01/11/19 21:00 01/11/19 21:00 I have reviewed the current psychotropics carefully including drug interactions. Risk benefit ratio favors no change other than as noted in my dictated progress note. Diagnosis: Problems: (1) Schizoaffective disorder, bipolar type (2) Anxiety disorder (3) Impulse control disorder (4) Schizophrenia, paranoid, chronic with acute exacerbation (5) Mild cognitive impairment (6) Status post CVA LEO MERCEDES MD Jan 11, 2019 21:29
[2019-01-12] MEDS: ACETAMINOPHEN 325 MG TABLET PO PRN (00:09)
[2019-01-12 05:27] VITALS: BP 132/80
[2019-01-12] MEDS: BENZTROPINE MESYLATE 1 MG TABLET PO SCH ×2 (08:32→20:00)
[2019-01-12] MEDS: CARBIDOPA/LEVODOPA 25/100MG TABLET PO SCH ×3 (08:32→20:00)
[2019-01-12] MEDS: ASPIRIN ENTERIC COATED 81 MG TABLET.DR. PO SCH (08:32)
[2019-01-12] MEDS: CETIRIZINE HCL 10 MG TABLET PO SCH (08:32)
[2019-01-12] MEDS: GABAPENTIN 300 MG CAPSULE. PO SCH ×2 (08:34→20:00)
[2019-01-12] MEDS: NICOTINE 7MG PATCH. TD SCH (08:34)
[2019-01-12] MEDS: CHOLECALCIFEROL (VITAMIN D3) 1,000 UNIT TABLET PO SCH (08:34)
[2019-01-12] MEDS: MULTIVITAMIN with MINERAL TABLET. PO SCH (08:34)
[2019-01-12] MEDS: POLYVINYL ALCOHOL 1.4% OPHTH SOLUTION 15ML BOTTLE. OU SCH ×3 (08:35→20:00)
[2019-01-12] MEDS: HALOPERIDOL 5 MG TABLET PO SCH ×2 (09:00→16:00)
[2019-01-12 16:14] VITALS: BP 142/94
[2019-01-12] MEDS: DIVALPROEX ER 500 MG TAB.ER.24H PO SCH (20:00)
[2019-01-12] MEDS: cloZAPine 25 MG TABLET PO SCH (20:00)
[2019-01-12] MEDS: ATORVASTATIN CALCIUM 10 MG TABLET. PO SCH (20:00)
[2019-01-12] MEDS: MIRTAZAPINE 15 MG TABLET PO SCH (20:00)
[2019-01-12] MEDS: risperiDONE 1 MG TABLET. PO SCH (20:00)
--- NOTE | 2019-01-12 21:33 | PDOC ---
Exam Note: Vahid Note: Please also refer to the separate dictated note~for this date of service dictated separately.~Patient seen individually. Discussed the patient with Nursing staff reviewed the chart.~Reviewed interim history and current functioning. Reviewed vital signs,~Labs/ Radiology~and current medications noted below. Continue current treatment with the changes noted in the dictated addendum note Assessment: Vital Signs/I&O: Vital Signs Date Time Temp Pulse Resp B/P (MAP) Pulse Ox O2 Delivery O2 Flow Rate FiO2 01/12/19 16:14 97.4 103 19 142/94 (110) 95 01/11/19 16:26 Room Air I & O 01/11/19 01/11/19 01/12/19 15:00 23:00 07:00 Intake Total 680 ml 240 ml 80 ml Balance 680 ml 240 ml 80 ml Current Medications: I have reviewed the current psychotropics carefully including drug interactions. Risk benefit ratio favors no change other than as noted in my dictated progress note. Diagnosis: Problems: (1) Schizoaffective disorder, bipolar type (2) Anxiety disorder (3) Impulse control disorder (4) Schizophrenia, paranoid, chronic with acute exacerbation (5) Status post CVA (6) Mild cognitive impairment LEO MERCEDES MD Jan 12, 2019 21:33
--- NOTE | 2019-01-13 01:25 | PN ---
DATE: 01/10/2019 PSYCHIATRIC PROGRESS NOTE. This is a late entry of 01/10/2019, covers the elements not covered in my initial note. SUBJECTIVE: I met with the patient in the evening of 01/10/2019. The patient slept 7-3/4 hours previous night. He has been more pleasant, interactive, coming to the day room, took a nap in the afternoon, less psychotic and appears cognitively clearer. He is still paranoid. REVIEW OF SYSTEMS: No CV, , pulmonary, eye, ENT system symptoms on review. MENTAL STATUS EXAM: Oriented to himself, situation, met with him at length in his room. Speech has some latency, coherent, often responses monosyllabic. Abstraction fair, computation impaired, language function intact, attention span short. Mood and affect withdrawn. LABORATORY DATA: Reviewed. IMPRESSION: Unchanged from initial note. PLAN: No change from initial note. We are adjusting the Depakote. Labs level due on 01/11/2019, will adjust thereafter. MAN Cate MERCEDES MD DR: JESSICA/kayla JOB#: [id number] / [id number]
--- NOTE | 2019-01-13 01:28 | PN ---
DATE: 01/11/2019 PSYCHIATRIC PROGRESS NOTE This late entry 01/11/2019 covers elements not covered in my initial note. SUBJECTIVE: I met with the patient in the evening of 01/11/2019 and staffed at a treatment team meeting with the entire team in the morning. Appetite 50%-75%, slept 5-1/4 hours. The patient has been pleasant, cooperative with medications. Reviewed his history at length at the treatment team meeting. He admits to hearing voices since he was a child. He states he has heard ladies voices that curses at him and he sees spirits. He sees a tall man with a hat. Some of these symptoms are reflective of PTSD in addition to his psychosis. He has attended 2 groups. Valproic acid level has increased from 38 to 62, therapeutic on current dosage. REVIEW OF SYSTEMS: No CV, , pulmonary, eye, ENT system symptoms on review. MENTAL STATUS EXAM: Reasonably oriented. Speech is coherent, often responses monosyllabic. Abstraction fair, computation impaired, language function intact, attention span short. He is much less paranoid. No suicidal or homicidal ideation. Not cursing. LABORATORY DATA: Reviewed. IMPRESSION: Unchanged from initial note. PLAN: No change from initial note, but we will reduce the Cogentin from 2 mg b.i.d. down to 1 mg b.i.d. and then decide after that whether we can taper it further. Continue rest unchanged from initial note. LEO MERCEDES MD DR: JESSICA/kayla JOB#: [id number] / [id number]
[2019-01-13 05:59] VITALS: BP 117/76
[2019-01-13] MEDS: ASPIRIN ENTERIC COATED 81 MG TABLET.DR. PO SCH (08:23)
[2019-01-13] MEDS: POLYVINYL ALCOHOL 1.4% OPHTH SOLUTION 15ML BOTTLE. OU SCH ×3 (08:23→20:19)
[2019-01-13] MEDS: CARBIDOPA/LEVODOPA 25/100MG TABLET PO SCH ×3 (08:24→20:19)
[2019-01-13] MEDS: CETIRIZINE HCL 10 MG TABLET PO SCH (08:24)
[2019-01-13] MEDS: GABAPENTIN 300 MG CAPSULE. PO SCH ×2 (08:24→20:19)
[2019-01-13] MEDS: MULTIVITAMIN with MINERAL TABLET. PO SCH (08:24)
[2019-01-13] MEDS: NICOTINE 7MG PATCH. TD SCH (08:24)
[2019-01-13] MEDS: BENZTROPINE MESYLATE 1 MG TABLET PO SCH ×2 (08:24→20:19)
[2019-01-13] MEDS: CHOLECALCIFEROL (VITAMIN D3) 1,000 UNIT TABLET PO SCH (08:24)
[2019-01-13 15:58] VITALS: BP 121/78
[2019-01-13] MEDS: DIVALPROEX ER 500 MG TAB.ER.24H PO SCH (20:19)
[2019-01-13] MEDS: risperiDONE 1 MG TABLET. PO SCH (20:19)
[2019-01-13] MEDS: MIRTAZAPINE 15 MG TABLET PO SCH (20:19)
[2019-01-13] MEDS: ATORVASTATIN CALCIUM 10 MG TABLET. PO SCH (20:19)
[2019-01-13] MEDS: cloZAPine 25 MG TABLET PO SCH (20:19)
--- NOTE | 2019-01-13 22:49 | PDOC ---
Exam Note: Vahid Note: Please also refer to the separate dictated note~for this date of service dictated separately.~Patient seen individually. Discussed the patient with Nursing staff reviewed the chart.~Reviewed interim history and current functioning. Reviewed vital signs,~Labs/ Radiology~and current medications noted below. Continue current treatment with the changes noted in the dictated addendum note Assessment: Vital Signs/I&O: Vital Signs Date Time Temp Pulse Resp B/P (MAP) Pulse Ox O2 Delivery O2 Flow Rate FiO2 01/13/19 15:58 97.7 84 18 121/78 (92) 94 01/11/19 16:26 Room Air I & O 01/12/19 01/12/19 01/13/19 15:00 23:00 07:00 Intake Total 840 ml 240 ml Balance 840 ml 240 ml Current Medications: I have reviewed the current psychotropics carefully including drug interactions. Risk benefit ratio favors no change other than as noted in my dictated progress note. Diagnosis: Problems: (1) Schizoaffective disorder, bipolar type (2) Anxiety disorder (3) Impulse control disorder (4) Schizophrenia, paranoid, chronic with acute exacerbation (5) Status post CVA (6) Mild cognitive impairment LEO MERCEDES MD Jan 13, 2019 22:49
[2019-01-14 05:25] VITALS: BP 123/70
[2019-01-14] MEDS: POLYVINYL ALCOHOL 1.4% OPHTH SOLUTION 15ML BOTTLE. OU SCH ×3 (08:20→20:27)
[2019-01-14] MEDS: ASPIRIN ENTERIC COATED 81 MG TABLET.DR. PO SCH (08:20)
[2019-01-14] MEDS: GABAPENTIN 300 MG CAPSULE. PO SCH ×2 (08:21→20:26)
[2019-01-14] MEDS: CARBIDOPA/LEVODOPA 25/100MG TABLET PO SCH ×3 (08:21→20:26)
[2019-01-14] MEDS: MULTIVITAMIN with MINERAL TABLET. PO SCH (08:21)
[2019-01-14] MEDS: BENZTROPINE MESYLATE 1 MG TABLET PO SCH ×2 (08:21→20:26)
[2019-01-14] MEDS: CETIRIZINE HCL 10 MG TABLET PO SCH (08:22)
[2019-01-14] MEDS: NICOTINE 7MG PATCH. TD SCH (08:22)
[2019-01-14] MEDS: CHOLECALCIFEROL (VITAMIN D3) 1,000 UNIT TABLET PO SCH (08:22)
[2019-01-14 15:54] VITALS: BP 106/69
[2019-01-14] MEDS: cloZAPine 25 MG TABLET PO SCH (20:26)
[2019-01-14] MEDS: MIRTAZAPINE 15 MG TABLET PO SCH (20:26)
[2019-01-14] MEDS: ATORVASTATIN CALCIUM 10 MG TABLET. PO SCH (20:26)
[2019-01-14] MEDS: risperiDONE 1 MG TABLET. PO SCH (20:26)
[2019-01-14] MEDS: DIVALPROEX ER 500 MG TAB.ER.24H PO SCH (20:27)
--- NOTE | 2019-01-14 20:42 | PN ---
DATE: PSYCHIATRIC PROGRESS NOTE This late entry 01/13/2019, covers the elements not covered in my initial note. SUBJECTIVE: I met with the patient in the evening of 01/13/2019. The patient slept 5-1/4 hours previous night. Overall, he has done better and denies hearing voices. I met with him at length in his room. He is ambulating better since the Haldol was discontinued, despite the fact that we have stopped the Artane and also reduce the Cogentin. REVIEW OF SYSTEMS: No CV, , pulmonary, eye, ENT system symptoms on review. MENTAL STATUS EXAM: Oriented to himself and situation. Speech is coherent, abstraction fair, computation impaired, language function intact. Mood and affect still somewhat withdrawn, but improved. LABORATORY DATA: Reviewed. IMPRESSION: Schizophrenia, chronic paranoid with acute exacerbation, in partial remission. Rest unchanged. PLAN: No change from initial note. LEO MERCEDES MD DR: JESSICA/kayla JOB#: [id number] / [id number]
--- NOTE | 2019-01-14 21:27 | PDOC ---
Exam Note: Vahid Note: Please also refer to the separate dictated note~for this date of service dictated separately.~Patient seen individually. Discussed the patient with Nursing staff reviewed the chart.~Reviewed interim history and current functioning. Reviewed vital signs,~Labs/ Radiology~and current medications noted below. Continue current treatment with the changes noted in the dictated addendum note Assessment: Vital Signs/I&O: Vital Signs Date Time Temp Pulse Resp B/P (MAP) Pulse Ox O2 Delivery O2 Flow Rate FiO2 01/14/19 15:54 97.8 78 20 106/69 (81) 95 Room Air I & O 01/13/19 01/13/19 01/14/19 14:59 22:59 06:59 Intake Total 840 ml 600 ml Balance 840 ml 600 ml Current Medications: I have reviewed the current psychotropics carefully including drug interactions. Risk benefit ratio favors no change other than as noted in my dictated progress note. Diagnosis: Problems: (1) Schizoaffective disorder, bipolar type (2) Anxiety disorder (3) Impulse control disorder (4) Schizophrenia, paranoid, chronic with acute exacerbation (5) Status post CVA (6) Mild cognitive impairment LEO MERCEDES MD Jan 14, 2019 21:27
--- NOTE | 2019-01-14 21:36 | PN ---
DATE: 01/12/2019 PSYCHIATRIC PROGRESS NOTE This late entry 01/12/2019 covers elements not covered in my initial note. SUBJECTIVE: I met with the patient in the evening of 01/12/2019. The patient slept 8-1/2 hours previous night. He has had trouble walking, trouble swallowing and some extrapyramidal symptoms evident as I examined him. He is less psychotic, less agitated despite the above. REVIEW OF SYSTEMS: No CV, , pulmonary, eye, ENT system symptoms on review. MENTAL STATUS EXAM: Oriented to himself and situation. Speech is coherent, abstraction fair, computation impaired, language function intact. Mood and affect, lability is improved. He is not yelling, cursing, disparaging to staff and myself as he was shortly after admission. LABORATORY DATA: Reviewed. IMPRESSION: Schizophrenia, chronic paranoid with acute exacerbation, in partial remission. Rest unchanged. PLAN: We will go ahead and stop the Haldol given his extrapyramidal symptoms. Cogentin has been reduced. Maintain the Clozaril and increase gradually. Continue Risperdal 1 mg at bedtime and may consider tapering this in the future. MAN Cate MERCEDES MD DR: JESSICA/kayla JOB#: [id number] / [id number]
[2019-01-15 05:50] VITALS: BP 121/76
[2019-01-15 07:22] LABS: BASO % 0 % (0-3); EOS # 0.3 x10^3/uL (0.0-0.7); EOS % 4 % (0-3); HEMATOCRIT 39.4 % (39.0-53.0); HEMOGLOBIN 13.5 g/dL (13.0-17.5); LYMPH # 2.9 x10^3/uL (1.0-4.8); LYMPH % 37 % (24-48); MEAN CORPUSCULAR HEMOGLOBIN 30 pg (25-35); MEAN CORPUSCULAR HGB CONC 34 g/dL (31-37); MEAN CORPUSCULAR VOLUME 87 fL (79-100); MONO # 0.5 x10^3/uL (0.0-1.1); MONO % 6 % (0-9); NEUT % 52 % (31-73); PLATELET COUNT 146 x10^3/uL (140-400); RED BLOOD COUNT 4.51 x10^6/uL (4.30-5.70); RED CELL DISTRIBUTION WIDTH 14.3 % (11.5-14.5); WHITE BLOOD COUNT 7.7 x10^3/uL (4.0-11.0)
[2019-01-15] MEDS: ASPIRIN ENTERIC COATED 81 MG TABLET.DR. PO SCH (07:57)
[2019-01-15] MEDS: CETIRIZINE HCL 10 MG TABLET PO SCH (07:58)
[2019-01-15] MEDS: CHOLECALCIFEROL (VITAMIN D3) 1,000 UNIT TABLET PO SCH (07:58)
[2019-01-15] MEDS: MULTIVITAMIN with MINERAL TABLET. PO SCH (07:58)
[2019-01-15] MEDS: CARBIDOPA/LEVODOPA 25/100MG TABLET PO SCH ×3 (07:58→20:09)
[2019-01-15] MEDS: BENZTROPINE MESYLATE 1 MG TABLET PO SCH ×2 (07:58→20:09)
[2019-01-15] MEDS: NICOTINE 7MG PATCH. TD SCH (07:59)
[2019-01-15] MEDS: POLYVINYL ALCOHOL 1.4% OPHTH SOLUTION 15ML BOTTLE. OU SCH ×3 (08:02→20:10)
[2019-01-15] MEDS: GABAPENTIN 300 MG CAPSULE. PO SCH ×2 (08:06→20:09)
[2019-01-15 16:01] VITALS: BP 129/87
[2019-01-15] MEDS: ATORVASTATIN CALCIUM 10 MG TABLET. PO SCH (20:09)
[2019-01-15] MEDS: DIVALPROEX ER 500 MG TAB.ER.24H PO SCH (20:09)
[2019-01-15] MEDS: risperiDONE 1 MG TABLET. PO SCH (20:09)
[2019-01-15] MEDS: MIRTAZAPINE 15 MG TABLET PO SCH (20:09)
[2019-01-15] MEDS: cloZAPine 25 MG TABLET PO SCH (20:09)
--- NOTE | 2019-01-15 21:35 | PDOC ---
Exam Note: Vahid Note: Please also refer to the separate dictated note~for this date of service dictated separately.~Patient seen individually. Discussed the patient with Nursing staff reviewed the chart.~Reviewed interim history and current functioning. Reviewed vital signs,~Labs/ Radiology~and current medications noted below. Continue current treatment with the changes noted in the dictated addendum note Assessment: Vital Signs/I&O: Vital Signs Date Time Temp Pulse Resp B/P (MAP) Pulse Ox O2 Delivery O2 Flow Rate FiO2 01/15/19 16:01 97.8 87 15 129/87 (101) 95 01/14/19 15:54 Room Air I & O 01/14/19 01/14/19 01/15/19 14:59 22:59 06:59 Intake Total 960 ml 600 ml Balance 960 ml 600 ml Labs: Laboratory Tests Test 01/15/19 06:39 White Blood Count 7.7 x10^3/uL (4.0-11.0) Red Blood Count 4.51 x10^6/uL (4.30-5.70) Hemoglobin 13.5 g/dL (13.0-17.5) Hematocrit 39.4 % (39.0-53.0) Mean Corpuscular Volume 87 fL (79-100) Mean Corpuscular Hemoglobin 30 pg (25-35) Mean Corpuscular Hemoglobin Concent 34 g/dL (31-37) Red Cell Distribution Width 14.3 % (11.5-14.5) Platelet Count 146 x10^3/uL (140-400) Neutrophils (%) (Auto) 52 % (31-73) Lymphocytes (%) (Auto) 37 % (24-48) Monocytes (%) (Auto) 6 % (0-9) Eosinophils (%) (Auto) 4 % (0-3) H Basophils (%) (Auto) 0 % (0-3) Neutrophils # (Auto) 4.0 x10^3uL (1.8-7.7) Lymphocytes # (Auto) 2.9 x10^3/uL (1.0-4.8) Monocytes # (Auto) 0.5 x10^3/uL (0.0-1.1) Eosinophils # (Auto) 0.3 x10^3/uL (0.0-0.7) Basophils # (Auto) 0.0 x10^3/uL (0.0-0.2) Current Medications: I have reviewed the current psychotropics carefully including drug interactions. Risk benefit ratio favors no change other than as noted in my dictated progress note. Diagnosis: Problems: (1) Schizoaffective disorder, bipolar type (2) Anxiety disorder (3) Impulse control disorder (4) Schizophrenia, paranoid, chronic with acute exacerbation (5) Status post CVA (6) Mild cognitive impairment LEO MERCEDES MD Jan 15, 2019 21:35
--- NOTE | 2019-01-16 04:58 | PN ---
DATE: 01/14/2019 PSYCHIATRIC PROGRESS NOTE This late entry 01/14/2019 covers elements not covered in my initial note. SUBJECTIVE: I met with the patient evening of 01/14/2019. I met with him in his room. The patient slept 9 hours previous night. He has been somewhat withdrawn, but no hallucinations noted. He is ambulating better and is more appropriate since the Haldol was discontinued. REVIEW OF SYSTEMS: No CV, , pulmonary, eye, ENT system symptoms on review. MENTAL STATUS EXAM: Oriented to himself and situation. Speech has some latency, coherent. Abstraction fair, computation impaired, language function intact, attention span short. Mood and affect still withdrawn, but improved. LABORATORY DATA: Reviewed. IMPRESSION: Unchanged from initial note. PLAN: No change from initial note. MAN Cate MERCEDES MD DR: JESSICA/kayla JOB#: [id number] / [id number]
[2019-01-16 05:51] VITALS: BP 105/68
[2019-01-16] MEDS: MULTIVITAMIN with MINERAL TABLET. PO SCH (07:47)
[2019-01-16] MEDS: ASPIRIN ENTERIC COATED 81 MG TABLET.DR. PO SCH (07:47)
[2019-01-16] MEDS: BENZTROPINE MESYLATE 1 MG TABLET PO SCH (07:47)
[2019-01-16] MEDS: CETIRIZINE HCL 10 MG TABLET PO SCH (07:48)
[2019-01-16] MEDS: CHOLECALCIFEROL (VITAMIN D3) 1,000 UNIT TABLET PO SCH (07:48)
[2019-01-16] MEDS: CARBIDOPA/LEVODOPA 25/100MG TABLET PO SCH ×3 (07:48→20:22)
[2019-01-16] MEDS: NICOTINE 7MG PATCH. TD SCH (07:49)
[2019-01-16] MEDS: POLYVINYL ALCOHOL 1.4% OPHTH SOLUTION 15ML BOTTLE. OU SCH ×3 (07:49→20:21)
[2019-01-16] MEDS: GABAPENTIN 300 MG CAPSULE. PO SCH ×2 (07:49→20:22)
[2019-01-16 15:37] VITALS: BP 108/72
[2019-01-16] MEDS: MIRTAZAPINE 15 MG TABLET PO SCH (20:22)
[2019-01-16] MEDS: risperiDONE 1 MG TABLET. PO SCH (20:22)
[2019-01-16] MEDS: ATORVASTATIN CALCIUM 10 MG TABLET. PO SCH (20:22)
[2019-01-16] MEDS: cloZAPine 25 MG TABLET PO SCH (20:22)
[2019-01-16] MEDS: DIVALPROEX ER 500 MG TAB.ER.24H PO SCH (20:27)
[2019-01-16] MEDS: BENZTROPINE MESYLATE 0.5 MG TABLET PO SCH (20:37)
--- NOTE | 2019-01-16 21:44 | PDOC ---
Exam Note: Vahid Note: Please also refer to the separate dictated note~for this date of service dictated separately.~Patient seen individually. Discussed the patient with Nursing staff reviewed the chart.~Reviewed interim history and current functioning. Reviewed vital signs,~Labs/ Radiology~and current medications noted below. Continue current treatment with the changes noted in the dictated addendum note Assessment: Vital Signs/I&O: Vital Signs Date Time Temp Pulse Resp B/P (MAP) Pulse Ox O2 Delivery O2 Flow Rate FiO2 01/16/19 15:37 97.9 97 16 108/72 (84) 92 Room Air I & O 01/15/19 01/15/19 01/16/19 15:00 23:00 07:00 Intake Total 840 ml 240 ml Balance 840 ml 240 ml Current Medications: Meds: Current Medications Medications (Trade) Dose Ordered Sig/Malick Route PRN Reason Start Time Stop Time Status Last Admin Dose Admin Benztropine Mesylate (Cogentin) 0.5 mg BID PO 01/16/19 21:00 01/16/19 20:37 I have reviewed the current psychotropics carefully including drug interactions. Risk benefit ratio favors no change other than as noted in my dictated progress note. Diagnosis: Problems: (1) Schizoaffective disorder, bipolar type (2) Anxiety disorder (3) Impulse control disorder (4) Schizophrenia, paranoid, chronic with acute exacerbation (5) Status post CVA (6) Mild cognitive impairment LEO MERCEDES MD Jan 16, 2019 21:44
--- NOTE | 2019-01-17 00:16 | PN ---
DATE: 01/15/2019 PROGRESS NOTE This late entry of 01/15/2019 covers the elements not covered in my initial note. SUBJECTIVE: I met with the patient in the evening of 01/15/2019. I met with him in his room at length. The patient slept 7-1/2 hours previous night. He has been compliant with medications. No hallucinations noted. This is despite stopping the Haldol 15 mg a day. He is walking better, less parkinsonian symptoms since Haldol was stopped. He does need standby assist at times. REVIEW OF SYSTEMS: No CV, , pulmonary, eye system symptoms on review. MENTAL STATUS EXAM: Oriented to himself and situation. Speech is coherent, abstraction fair, computation impaired, language function intact, attention span short. Mood and affect somewhat withdrawn, but showing improvement. LABORATORY DATA: Reviewed. IMPRESSION: Schizophrenia, chronic paranoid type with acute exacerbation versus schizoaffective disorder, bipolar type, mixed with psychotic features. Rest unchanged. PLAN: Continue psychotropics from initial note. Valproic acid level is therapeutic at 62. Rest unchanged. MAN Cate MERCEDES MD DR: JESSICA/kayla JOB#: [id number] / [id number]
[2019-01-17 05:57] VITALS: BP 122/80
[2019-01-17] MEDS: CARBIDOPA/LEVODOPA 25/100MG TABLET PO SCH ×3 (08:13→19:13)
[2019-01-17] MEDS: POLYVINYL ALCOHOL 1.4% OPHTH SOLUTION 15ML BOTTLE. OU SCH ×3 (08:13→19:16)
[2019-01-17] MEDS: BENZTROPINE MESYLATE 0.5 MG TABLET PO SCH ×2 (08:13→19:15)
[2019-01-17] MEDS: ASPIRIN ENTERIC COATED 81 MG TABLET.DR. PO SCH (08:13)
[2019-01-17] MEDS: MULTIVITAMIN with MINERAL TABLET. PO SCH (08:14)
[2019-01-17] MEDS: CETIRIZINE HCL 10 MG TABLET PO SCH (08:14)
[2019-01-17] MEDS: CHOLECALCIFEROL (VITAMIN D3) 1,000 UNIT TABLET PO SCH (08:14)
[2019-01-17] MEDS: NICOTINE 7MG PATCH. TD SCH (08:14)
[2019-01-17] MEDS: GABAPENTIN 300 MG CAPSULE. PO SCH ×2 (08:15→19:15)
[2019-01-17 10:02] LABS: ALBUMIN 3.5 g/dL (3.4-5.0); CALCIUM 8.8 mg/dL (8.5-10.1); CREATININE 0.9 mg/dL (0.7-1.3); GFR 85.5; POTASSIUM 4.2 mmol/L (3.5-5.1); TOTAL BILIRUBIN 0.5 mg/dL (0.2-1.0); TOTAL PROTEIN 6.9 g/dL (6.4-8.2)
[2019-01-17 16:17] VITALS: BP 113/69
[2019-01-17] MEDS: cloZAPine 25 MG TABLET PO SCH (19:14)
[2019-01-17] MEDS: ATORVASTATIN CALCIUM 10 MG TABLET. PO SCH (19:14)
[2019-01-17] MEDS: DIVALPROEX ER 500 MG TAB.ER.24H PO SCH (19:14)
[2019-01-17] MEDS: risperiDONE 1 MG TABLET. PO SCH (19:15)
[2019-01-17] MEDS: MIRTAZAPINE 15 MG TABLET PO SCH (19:15)
--- NOTE | 2019-01-17 21:37 | PDOC ---
Exam Note: Vahid Note: Please also refer to the separate dictated note~for this date of service dictated separately.~Patient seen individually. Discussed the patient with Nursing staff reviewed the chart.~Reviewed interim history and current functioning. Reviewed vital signs,~Labs/ Radiology~and current medications noted below. Continue current treatment with the changes noted in the dictated addendum note Assessment: Vital Signs/I&O: Vital Signs Date Time Temp Pulse Resp B/P (MAP) Pulse Ox O2 Delivery O2 Flow Rate FiO2 01/17/19 16:17 97.8 77 16 113/69 (84) 97 01/17/19 05:57 Room Air I & O 01/16/19 01/16/19 01/17/19 15:00 23:00 07:00 Intake Total 960 ml 360 ml Balance 960 ml 360 ml Labs: Laboratory Tests Test 01/17/19 09:04 Sodium Level 141 mmol/L (136-145) Potassium Level 4.2 mmol/L (3.5-5.1) Chloride Level 103 mmol/L (98-107) Carbon Dioxide Level 30 mmol/L (21-32) Anion Gap 8 (6-14) Blood Urea Nitrogen 22 mg/dL (8-26) Creatinine 0.9 mg/dL (0.7-1.3) Estimated GFR (Cockcroft-Gault) 85.5 BUN/Creatinine Ratio 24 (6-20) H Glucose Level 158 mg/dL (70-99) H Calcium Level 8.8 mg/dL (8.5-10.1) Total Bilirubin 0.5 mg/dL (0.2-1.0) Aspartate Amino Transferase (AST) 14 U/L (15-37) L Alanine Aminotransferase (ALT) 12 U/L (16-63) L Alkaline Phosphatase 89 U/L (46-116) Total Protein 6.9 g/dL (6.4-8.2) Albumin 3.5 g/dL (3.4-5.0) Albumin/Globulin Ratio 1.0 (1.0-1.7) Current Medications: I have reviewed the current psychotropics carefully including drug interactions. Risk benefit ratio favors no change other than as noted in my dictated progress note. Diagnosis: Problems: (1) Schizoaffective disorder, bipolar type (2) Anxiety disorder (3) Impulse control disorder (4) Schizophrenia, paranoid, chronic with acute exacerbation (5) Status post CVA (6) Mild cognitive impairment LEO MERCEDES MD Jan 17, 2019 21:37
--- NOTE | 2019-01-18 03:21 | PN ---
DATE: 01/16/2019 PSYCHIATRIC PROGRESS NOTE This late entry 01/16/2019 covers elements not covered in my initial note. SUBJECTIVE: I met with the patient evening of 01/16/2019 in his room. The patient slept 9 hours previous night. He has been pleasant and spends more time in the day room, less withdrawn, more interactive with staff. No auditory or visual hallucinations. REVIEW OF SYSTEMS: No CV, , pulmonary, eye, ENT system symptoms on review. MENTAL STATUS EXAM: Oriented to himself and situation. Speech is coherent, abstraction fair, computation impaired, language function intact, attention span short. Mood and affect is improved. LABORATORY DATA: Reviewed. IMPRESSION: Unchanged from initial note. PLAN: Reduce the Cogentin from 1 mg b.i.d. down to 0.5 mg b.i.d. since he has no tremors. Haldol has been stopped. Continue rest psychotropics from initial note. LEO MERCEDES MD DR: JESSICA/kayla JOB#: [id number] / [id number]
[2019-01-18 06:26] VITALS: BP 106/71
[2019-01-18] MEDS: CETIRIZINE HCL 10 MG TABLET PO SCH (08:17)
[2019-01-18] MEDS: CARBIDOPA/LEVODOPA 25/100MG TABLET PO SCH ×3 (08:17→20:19)
[2019-01-18] MEDS: CHOLECALCIFEROL (VITAMIN D3) 1,000 UNIT TABLET PO SCH (08:17)
[2019-01-18] MEDS: ASPIRIN ENTERIC COATED 81 MG TABLET.DR. PO SCH (08:17)
[2019-01-18] MEDS: MULTIVITAMIN with MINERAL TABLET. PO SCH (08:17)
[2019-01-18] MEDS: BENZTROPINE MESYLATE 0.5 MG TABLET PO SCH ×2 (08:18→20:19)
[2019-01-18] MEDS: NICOTINE 7MG PATCH. TD SCH (08:18)
[2019-01-18] MEDS: POLYVINYL ALCOHOL 1.4% OPHTH SOLUTION 15ML BOTTLE. OU SCH ×3 (08:18→20:18)
[2019-01-18] MEDS: GABAPENTIN 300 MG CAPSULE. PO SCH ×2 (08:22→20:18)
[2019-01-18 16:22] VITALS: BP 124/75
[2019-01-18] MEDS: ATORVASTATIN CALCIUM 10 MG TABLET. PO SCH (20:19)
[2019-01-18] MEDS: MIRTAZAPINE 15 MG TABLET PO SCH (20:19)
[2019-01-18] MEDS: DIVALPROEX ER 500 MG TAB.ER.24H PO SCH (20:19)
[2019-01-18] MEDS: risperiDONE 1 MG TABLET. PO SCH (20:19)
[2019-01-18] MEDS: cloZAPine 25 MG TABLET PO SCH (20:19)
--- NOTE | 2019-01-18 21:44 | PDOC ---
Exam Note: Vahid Note: Please also refer to the separate dictated note~for this date of service dictated separately.~Patient seen individually. Discussed the patient with Nursing staff reviewed the chart.~Reviewed interim history and current functioning. Reviewed vital signs,~Labs/ Radiology~and current medications noted below. Continue current treatment with the changes noted in the dictated addendum note Assessment: Vital Signs/I&O: Vital Signs Date Time Temp Pulse Resp B/P (MAP) Pulse Ox O2 Delivery O2 Flow Rate FiO2 01/18/19 16:22 97.3 89 16 124/75 (91) 96 Room Air I & O 01/17/19 01/17/19 01/18/19 14:59 22:59 06:59 Intake Total 720 ml 240 ml 120 ml Balance 720 ml 240 ml 120 ml Current Medications: I have reviewed the current psychotropics carefully including drug interactions. Risk benefit ratio favors no change other than as noted in my dictated progress note. Diagnosis: Problems: (1) Schizoaffective disorder, bipolar type (2) Anxiety disorder (3) Impulse control disorder (4) Schizophrenia, paranoid, chronic with acute exacerbation (5) Status post CVA (6) Mild cognitive impairment LEO MERCEDES MD Jan 18, 2019 21:44
[2019-01-19 06:05] VITALS: BP 117/76
[2019-01-19] MEDS: NICOTINE 7MG PATCH. TD SCH (07:50)
[2019-01-19] MEDS: CARBIDOPA/LEVODOPA 25/100MG TABLET PO SCH ×3 (07:50→20:04)
[2019-01-19] MEDS: CETIRIZINE HCL 10 MG TABLET PO SCH (07:50)
[2019-01-19] MEDS: ASPIRIN ENTERIC COATED 81 MG TABLET.DR. PO SCH (07:51)
[2019-01-19] MEDS: BENZTROPINE MESYLATE 0.5 MG TABLET PO SCH ×2 (07:51→20:05)
[2019-01-19] MEDS: CHOLECALCIFEROL (VITAMIN D3) 1,000 UNIT TABLET PO SCH (07:51)
[2019-01-19] MEDS: MULTIVITAMIN with MINERAL TABLET. PO SCH (07:51)
[2019-01-19] MEDS: GABAPENTIN 300 MG CAPSULE. PO SCH ×2 (07:52→20:04)
[2019-01-19] MEDS: POLYVINYL ALCOHOL 1.4% OPHTH SOLUTION 15ML BOTTLE. OU SCH ×3 (07:53→21:00)
--- NOTE | 2019-01-19 10:08 | PN ---
DATE: 01/17/2019 PSYCHIATRIC PROGRESS NOTE This late entry 01/17/2019 covers the elements not covered in my initial note. SUBJECTIVE: I met with the patient in the evening of 01/17/2019. The patient slept 7-3/4 hours previous night, somewhat withdrawn. No hallucinations noted. He remains isolative in his room, which is where I met with him at length in the evening. REVIEW OF SYSTEMS: Positive for some tremors, more so left hand. No CV, , pulmonary, eye, ENT system symptoms on review. MENTAL STATUS EXAMINATION: Oriented to himself and situation. Speech is coherent, abstraction fair, computation impaired, language function intact, attention span short. Mood and affect somewhat withdrawn, less psychotic. LABORATORY DATA: Reviewed. IMPRESSION: Unchanged from initial note. PLAN: No change from initial note. MAN Cate MERCEDES MD DR: JESSICA/kayla JOB#: [id number] / [id number]
[2019-01-19 16:38] VITALS: BP 113/67
[2019-01-19] MEDS: DIVALPROEX ER 500 MG TAB.ER.24H PO SCH (20:04)
[2019-01-19] MEDS: MIRTAZAPINE 15 MG TABLET PO SCH (20:04)
[2019-01-19] MEDS: cloZAPine 25 MG TABLET PO SCH (20:04)
[2019-01-19] MEDS: ATORVASTATIN CALCIUM 10 MG TABLET. PO SCH (20:04)
[2019-01-19] MEDS: risperiDONE 1 MG TABLET. PO SCH (20:05)
--- NOTE | 2019-01-19 21:48 | PDOC ---
Exam Note: Vahid Note: Please also refer to the separate dictated note~for this date of service dictated separately.~Patient seen individually. Discussed the patient with Nursing staff reviewed the chart.~Reviewed interim history and current functioning. Reviewed vital signs,~Labs/ Radiology~and current medications noted below. Continue current treatment with the changes noted in the dictated addendum note Assessment: Vital Signs/I&O: Vital Signs Date Time Temp Pulse Resp B/P (MAP) Pulse Ox O2 Delivery O2 Flow Rate FiO2 01/19/19 16:38 97.8 83 16 113/67 (82) 100 Room Air I & O 01/18/19 01/18/19 01/19/19 15:00 23:00 07:00 Intake Total 720 ml 240 ml Balance 720 ml 240 ml Current Medications: I have reviewed the current psychotropics carefully including drug interactions. Risk benefit ratio favors no change other than as noted in my dictated progress note. Diagnosis: Problems: (1) Schizoaffective disorder, bipolar type (2) Anxiety disorder (3) Impulse control disorder (4) Schizophrenia, paranoid, chronic with acute exacerbation (5) Status post CVA (6) Mild cognitive impairment LEO MERCEDES MD Jan 19, 2019 21:48
--- NOTE | 2019-01-19 23:16 | PN ---
DATE: 01/18/2019 PSYCHIATRIC PROGRESS NOTE This late entry 01/18/2019 covers elements not covered in my initial note. SUBJECTIVE: I met with the patient evening of 01/18/2019. The patient was also staffed at a treatment team meeting with the entire team in the morning. The patient is sleeping 8 hours average. Appetite 75-100%. He has been compliant, pleasant, withdrawn, but not agitated, aggressive, psychotic as he was at admission. No hallucinations noted. REVIEW OF SYSTEMS: No CV, , pulmonary, eye system symptoms on review. He does have some left hand tremors. MENTAL STATUS EXAM: Oriented to himself and situation. Speech is coherent, abstraction fair, computation impaired, language function intact, attention span short. Mood and affect somewhat withdrawn. He was very appreciative of the care here, repeatedly shaking my hand. LABORATORY DATA: Reviewed. IMPRESSION: Schizoaffective disorder, bipolar type, mixed with psychotic features; anxiety disorder, unspecified; impulse control disorder, unspecified. Rest unchanged. PLAN: Continue current psychotropics from initial note. Valproic acid level therapeutic at 62. May need to increase Cogentin if tremors persist. We will defer to Dr. Conway, Neurology. Rest unchanged. MAN Cate MERCEDES MD DR: JESSICA/kayla JOB#: [id number] / [id number]
[2019-01-20 05:44] VITALS: BP 126/78
[2019-01-20] MEDS: BENZTROPINE MESYLATE 0.5 MG TABLET PO SCH ×2 (07:48→19:57)
[2019-01-20] MEDS: ASPIRIN ENTERIC COATED 81 MG TABLET.DR. PO SCH (07:48)
[2019-01-20] MEDS: MULTIVITAMIN with MINERAL TABLET. PO SCH (07:49)
[2019-01-20] MEDS: CARBIDOPA/LEVODOPA 25/100MG TABLET PO SCH ×3 (07:49→19:57)
[2019-01-20] MEDS: NICOTINE 7MG PATCH. TD SCH (07:49)
[2019-01-20] MEDS: POLYVINYL ALCOHOL 1.4% OPHTH SOLUTION 15ML BOTTLE. OU SCH ×3 (07:49→19:58)
[2019-01-20] MEDS: CETIRIZINE HCL 10 MG TABLET PO SCH (07:49)
[2019-01-20] MEDS: CHOLECALCIFEROL (VITAMIN D3) 1,000 UNIT TABLET PO SCH (07:49)
[2019-01-20] MEDS: GABAPENTIN 300 MG CAPSULE. PO SCH ×2 (07:51→19:57)
[2019-01-20 15:31] VITALS: BP 117/86
[2019-01-20] MEDS: MIRTAZAPINE 15 MG TABLET PO SCH (19:57)
[2019-01-20] MEDS: ATORVASTATIN CALCIUM 10 MG TABLET. PO SCH (19:57)
[2019-01-20] MEDS: cloZAPine 25 MG TABLET PO SCH (19:57)
[2019-01-20] MEDS: risperiDONE 1 MG TABLET. PO SCH (19:57)
[2019-01-20] MEDS: DIVALPROEX ER 500 MG TAB.ER.24H PO SCH (19:57)
--- NOTE | 2019-01-20 22:43 | PDOC ---
Exam Note: Vahid Note: Please also refer to the separate dictated note~for this date of service dictated separately.~Patient seen individually. Discussed the patient with Nursing staff reviewed the chart.~Reviewed interim history and current functioning. Reviewed vital signs,~Labs/ Radiology~and current medications noted below. Continue current treatment with the changes noted in the dictated addendum note Assessment: Vital Signs/I&O: Vital Signs Date Time Temp Pulse Resp B/P (MAP) Pulse Ox O2 Delivery O2 Flow Rate FiO2 01/20/19 15:31 97.1 112 22 117/86 (96) 93 01/19/19 16:38 Room Air I & O 01/19/19 01/19/19 01/20/19 15:00 23:00 07:00 Intake Total 720 ml 480 ml Balance 720 ml 480 ml Current Medications: I have reviewed the current psychotropics carefully including drug interactions. Risk benefit ratio favors no change other than as noted in my dictated progress note. Diagnosis: Problems: (1) Schizoaffective disorder, bipolar type (2) Anxiety disorder (3) Impulse control disorder (4) Schizophrenia, paranoid, chronic with acute exacerbation (5) Status post CVA (6) Mild cognitive impairment LEO MERCEDES MD Jan 20, 2019 22:43
[2019-01-21 05:57] VITALS: BP 106/64
[2019-01-21] MEDS: CHOLECALCIFEROL (VITAMIN D3) 1,000 UNIT TABLET PO SCH (07:43)
[2019-01-21] MEDS: POLYVINYL ALCOHOL 1.4% OPHTH SOLUTION 15ML BOTTLE. OU SCH ×3 (07:43→19:48)
[2019-01-21] MEDS: NICOTINE 7MG PATCH. TD SCH (07:43)
[2019-01-21] MEDS: ASPIRIN ENTERIC COATED 81 MG TABLET.DR. PO SCH (07:43)
[2019-01-21] MEDS: MULTIVITAMIN with MINERAL TABLET. PO SCH (07:44)
[2019-01-21] MEDS: CETIRIZINE HCL 10 MG TABLET PO SCH (07:44)
[2019-01-21] MEDS: CARBIDOPA/LEVODOPA 25/100MG TABLET PO SCH ×3 (07:44→19:47)
[2019-01-21] MEDS: BENZTROPINE MESYLATE 0.5 MG TABLET PO SCH (07:46)
[2019-01-21] MEDS: GABAPENTIN 300 MG CAPSULE. PO SCH ×2 (07:46→19:47)
[2019-01-21 15:43] VITALS: BP 99/63
[2019-01-21] MEDS: risperiDONE 1 MG TABLET. PO SCH (19:47)
[2019-01-21] MEDS: ATORVASTATIN CALCIUM 10 MG TABLET. PO SCH (19:47)
[2019-01-21] MEDS: cloZAPine 25 MG TABLET PO SCH (19:47)
[2019-01-21] MEDS: MIRTAZAPINE 15 MG TABLET PO SCH (19:47)
[2019-01-21] MEDS: BENZTROPINE MESYLATE 1 MG TABLET PO SCH (19:48)
[2019-01-21] MEDS: DIVALPROEX ER 500 MG TAB.ER.24H PO SCH (19:48)
--- NOTE | 2019-01-21 20:58 | PDOC ---
Exam Note: Vahid Note: Please also refer to the separate dictated note~for this date of service dictated separately.~Patient seen individually. Discussed the patient with Nursing staff reviewed the chart.~Reviewed interim history and current functioning. Reviewed vital signs,~Labs/ Radiology~and current medications noted below. Continue current treatment with the changes noted in the dictated addendum note Assessment: Vital Signs/I&O: Vital Signs Date Time Temp Pulse Resp B/P (MAP) Pulse Ox O2 Delivery O2 Flow Rate FiO2 01/21/19 15:43 97.3 105 16 99/63 (75) 99 01/19/19 16:38 Room Air I & O 01/20/19 01/20/19 01/21/19 15:00 23:00 07:00 Intake Total 960 ml 480 ml 240 ml Balance 960 ml 480 ml 240 ml Current Medications: Meds: Current Medications Medications (Trade) Dose Ordered Sig/Malick Route PRN Reason Start Time Stop Time Status Last Admin Dose Admin Benztropine Mesylate (Cogentin) 0.5 mg DAILY PO 01/21/19 09:00 01/21/19 07:46 Benztropine Mesylate (Cogentin) 1 mg QHS PO 01/21/19 21:00 01/21/19 19:49 I have reviewed the current psychotropics carefully including drug interactions. Risk benefit ratio favors no change other than as noted in my dictated progress note. Diagnosis: Problems: (1) Mild cognitive impairment (2) Status post CVA (3) Schizophrenia, paranoid, chronic with acute exacerbation (4) Impulse control disorder (5) Anxiety disorder (6) Schizoaffective disorder, bipolar type LEO MERCEDES MD Jan 21, 2019 20:58
--- NOTE | 2019-01-22 04:23 | PN ---
DATE: 01/19/2019 PSYCHIATRIC PROGRESS NOTE This late entry of date of service 01/19/2019 covers elements not covered in my initial note. SUBJECTIVE: I met with the patient in the evening of 01/19/2019. The patient has done better. He slept 7 hours previous night. He remains withdrawn to his room, which is where I met with him at length. He does complain of tremors, but no CV, , pulmonary, eye system symptoms on review. MENTAL STATUS EXAM: Oriented to himself and situation. Speech has some latency, coherent. Abstraction fair, computation impaired, language function intact, attention span short. Mood and affect somewhat withdrawn, but much less paranoid. LABORATORY DATA: Reviewed. IMPRESSION: Unchanged from initial note. PLAN: No change from initial note. MAN Cate MERCEDES MD DR: JESSICA/kayla JOB#: [id number] / [id number]
[2019-01-22 05:43] VITALS: BP 104/60
[2019-01-22 06:18] LABS: BASO % 0 % (0-3); EOS # 0.3 x10^3/uL (0.0-0.7); EOS % 4 % (0-3); HEMATOCRIT 39.6 % (39.0-53.0); HEMOGLOBIN 13.5 g/dL (13.0-17.5); LYMPH # 3.3 x10^3/uL (1.0-4.8); LYMPH % 40 % (24-48); MEAN CORPUSCULAR HEMOGLOBIN 30 pg (25-35); MEAN CORPUSCULAR HGB CONC 34 g/dL (31-37); MEAN CORPUSCULAR VOLUME 87 fL (79-100); MONO # 0.5 x10^3/uL (0.0-1.1); MONO % 6 % (0-9); NEUT % 50 % (31-73); PLATELET COUNT 132 x10^3/uL (140-400); RED BLOOD COUNT 4.56 x10^6/uL (4.30-5.70); RED CELL DISTRIBUTION WIDTH 14.9 % (11.5-14.5); WHITE BLOOD COUNT 8.1 x10^3/uL (4.0-11.0)
[2019-01-22] MEDS: MULTIVITAMIN with MINERAL TABLET. PO SCH (08:07)
[2019-01-22] MEDS: POLYVINYL ALCOHOL 1.4% OPHTH SOLUTION 15ML BOTTLE. OU SCH ×3 (08:07→20:01)
[2019-01-22] MEDS: GABAPENTIN 300 MG CAPSULE. PO SCH ×2 (08:07→19:59)
[2019-01-22] MEDS: CARBIDOPA/LEVODOPA 25/100MG TABLET PO SCH ×3 (08:07→19:59)
[2019-01-22] MEDS: CETIRIZINE HCL 10 MG TABLET PO SCH (08:08)
[2019-01-22] MEDS: ASPIRIN ENTERIC COATED 81 MG TABLET.DR. PO SCH (08:08)
[2019-01-22] MEDS: NICOTINE 7MG PATCH. TD SCH (08:08)
[2019-01-22] MEDS: BENZTROPINE MESYLATE 0.5 MG TABLET PO SCH (08:08)
[2019-01-22] MEDS: CHOLECALCIFEROL (VITAMIN D3) 1,000 UNIT TABLET PO SCH (08:08)
[2019-01-22 16:43] VITALS: BP 102/64
--- NOTE | 2019-01-22 19:17 | PDOC ---
Exam Note: Vahid Note: Please also refer to the separate dictated note~for this date of service dictated separately.~Patient seen individually. Discussed the patient with Nursing staff reviewed the chart.~Reviewed interim history and current functioning. Reviewed vital signs,~Labs/ Radiology~and current medications noted below. Continue current treatment with the changes noted in the dictated addendum note Assessment: Vital Signs/I&O: Vital Signs Date Time Temp Pulse Resp B/P (MAP) Pulse Ox O2 Delivery O2 Flow Rate FiO2 01/22/19 16:43 97.7 76 16 102/64 (77) 98 01/19/19 16:38 Room Air I & O 01/21/19 01/21/19 01/22/19 15:00 23:00 07:00 Intake Total 720 ml 360 ml 120 ml Balance 720 ml 360 ml 120 ml Labs: Laboratory Tests Test 01/22/19 05:59 White Blood Count 8.1 x10^3/uL (4.0-11.0) Red Blood Count 4.56 x10^6/uL (4.30-5.70) Hemoglobin 13.5 g/dL (13.0-17.5) Hematocrit 39.6 % (39.0-53.0) Mean Corpuscular Volume 87 fL (79-100) Mean Corpuscular Hemoglobin 30 pg (25-35) Mean Corpuscular Hemoglobin Concent 34 g/dL (31-37) Red Cell Distribution Width 14.9 % (11.5-14.5) H Platelet Count 132 x10^3/uL (140-400) L Neutrophils (%) (Auto) 50 % (31-73) Lymphocytes (%) (Auto) 40 % (24-48) Monocytes (%) (Auto) 6 % (0-9) Eosinophils (%) (Auto) 4 % (0-3) H Basophils (%) (Auto) 0 % (0-3) Neutrophils # (Auto) 4.0 x10^3uL (1.8-7.7) Lymphocytes # (Auto) 3.3 x10^3/uL (1.0-4.8) Monocytes # (Auto) 0.5 x10^3/uL (0.0-1.1) Eosinophils # (Auto) 0.3 x10^3/uL (0.0-0.7) Basophils # (Auto) 0.0 x10^3/uL (0.0-0.2) Current Medications: Meds: Current Medications Medications (Trade) Dose Ordered Sig/Malick Route PRN Reason Start Time Stop Time Status Last Admin Dose Admin Benztropine Mesylate (Cogentin) 1 mg QHS PO 01/21/19 21:00 01/21/19 19:49 I have reviewed the current psychotropics carefully including drug interactions. Risk benefit ratio favors no change other than as noted in my dictated progress note. Diagnosis: Problems: (1) Mild cognitive impairment (2) Status post CVA (3) Schizophrenia, paranoid, chronic with acute exacerbation (4) Impulse control disorder (5) Anxiety disorder (6) Schizoaffective disorder, bipolar type LEO MERCEDES MD Jan 22, 2019 19:17
[2019-01-22] MEDS: BENZTROPINE MESYLATE 1 MG TABLET PO SCH (19:58)
[2019-01-22] MEDS: ATORVASTATIN CALCIUM 10 MG TABLET. PO SCH (19:58)
[2019-01-22] MEDS: risperiDONE 1 MG TABLET. PO SCH (19:59)
[2019-01-22] MEDS: MIRTAZAPINE 15 MG TABLET PO SCH (19:59)
[2019-01-22] MEDS: cloZAPine 25 MG TABLET PO SCH (19:59)
[2019-01-22] MEDS: DIVALPROEX ER 500 MG TAB.ER.24H PO SCH (20:00)
[2019-01-22] MEDS: DOCUSATE SODIUM 100 MG CAPSULE PO SCH (20:01)
--- NOTE | 2019-01-22 21:47 | PN ---
DATE: 01/20/2019 PSYCHIATRIC PROGRESS NOTE This late entry 01/20/2019 covers elements not covered in my initial note. SUBJECTIVE: I met with the patient evening of 01/20/2019 in his room. The patient slept 7-1/2 hours previous night. He is overall doing better, but has quite significant tremors, more so on the left hand. REVIEW OF SYSTEMS: Positive for the tremors. No CV, , pulmonary, eye system symptoms on review. MENTAL STATUS EXAM: Oriented to himself and situation. Speech has some latency, coherent. Abstraction fair, computation impaired, language function intact, attention span short. Mood and affect somewhat withdrawn. LABORATORY DATA: Reviewed. IMPRESSION: Unchanged from initial note. PLAN: Increase Cogentin from 0.5 mg b.i.d. to 0.5 mg a.m., 1 mg at bedtime. Continue rest unchanged for now. Valproic acid level therapeutic at 62. MAN Cate MERCEDES MD DR: JESSICA/kayla JOB#: [id number] / [id number]
[2019-01-23 05:37] VITALS: BP 127/76
[2019-01-23] MEDS: POLYVINYL ALCOHOL 1.4% OPHTH SOLUTION 15ML BOTTLE. OU SCH ×3 (08:15→19:33)
[2019-01-23] MEDS: ASPIRIN ENTERIC COATED 81 MG TABLET.DR. PO SCH (08:15)
[2019-01-23] MEDS: CARBIDOPA/LEVODOPA 25/100MG TABLET PO SCH ×3 (08:16→19:33)
[2019-01-23] MEDS: DOCUSATE SODIUM 100 MG CAPSULE PO SCH ×2 (08:16→19:33)
[2019-01-23] MEDS: CETIRIZINE HCL 10 MG TABLET PO SCH (08:16)
[2019-01-23] MEDS: NICOTINE 7MG PATCH. TD SCH (08:16)
[2019-01-23] MEDS: CHOLECALCIFEROL (VITAMIN D3) 1,000 UNIT TABLET PO SCH (08:16)
[2019-01-23] MEDS: MULTIVITAMIN with MINERAL TABLET. PO SCH (08:16)
[2019-01-23] MEDS: BENZTROPINE MESYLATE 0.5 MG TABLET PO SCH (08:16)
[2019-01-23] MEDS: GABAPENTIN 300 MG CAPSULE. PO SCH ×2 (08:17→19:33)
[2019-01-23 16:11] VITALS: BP 130/87
--- NOTE | 2019-01-23 18:43 | PDOC ---
Exam Note: Vahid Note: Please also refer to the separate dictated note~for this date of service dictated separately.~Patient seen individually. Discussed the patient with Nursing staff reviewed the chart.~Reviewed interim history and current functioning. Reviewed vital signs,~Labs/ Radiology~and current medications noted below. Continue current treatment with the changes noted in the dictated addendum note Assessment: Vital Signs/I&O: Vital Signs Date Time Temp Pulse Resp B/P (MAP) Pulse Ox O2 Delivery O2 Flow Rate FiO2 01/23/19 16:11 97.3 91 20 130/87 (101) 95 Room Air I & O 01/22/19 01/22/19 01/23/19 15:00 23:00 07:00 Intake Total 840 ml 480 ml Balance 840 ml 480 ml Current Medications: Meds: Current Medications Medications (Trade) Dose Ordered Sig/Malick Route PRN Reason Start Time Stop Time Status Last Admin Dose Admin Clozapine (Clozaril) 75 mg HS PO 01/22/19 21:00 01/22/19 20:01 Docusate Sodium (Colace) 100 mg BID PO 01/22/19 21:00 01/23/19 08:18 I have reviewed the current psychotropics carefully including drug interactions. Risk benefit ratio favors no change other than as noted in my dictated progress note. Diagnosis: Problems: (1) Mild cognitive impairment (2) Status post CVA (3) Schizophrenia, paranoid, chronic with acute exacerbation (4) Impulse control disorder (5) Anxiety disorder (6) Schizoaffective disorder, bipolar type LEO MERCEDES MD Jan 23, 2019 18:43
[2019-01-23] MEDS: BENZTROPINE MESYLATE 1 MG TABLET PO SCH (19:33)
[2019-01-23] MEDS: DIVALPROEX ER 500 MG TAB.ER.24H PO SCH (19:33)
[2019-01-23] MEDS: MIRTAZAPINE 15 MG TABLET PO SCH (19:33)
[2019-01-23] MEDS: cloZAPine 25 MG TABLET PO SCH (19:33)
[2019-01-23] MEDS: ATORVASTATIN CALCIUM 10 MG TABLET. PO SCH (19:33)
[2019-01-23] MEDS: risperiDONE 1 MG TABLET. PO SCH (19:34)
--- NOTE | 2019-01-24 05:41 | PN ---
DATE: 01/22/2019 PSYCHIATRIC PROGRESS NOTE This late entry 01/22/2019 covers elements not covered in my initial note. SUBJECTIVE: I met with the patient in the evening of 01/22/2019. The patient slept 7-1/2 hours previous night. He was quite agitated with the label machine operator who came to draw his labs in the morning, was calling the natural gas technician "retard." Appeared a little paranoid. REVIEW OF SYSTEMS: Still positive for the tremors intermittently, but they are better. No CV, , pulmonary, eye, ENT system symptoms on review. MENTAL STATUS EXAM: Reasonably oriented. Speech is coherent, abstraction fair, computation impaired, language function intact, attention span short. Mood and affect remains somewhat withdrawn, at times a little labile. LABORATORY DATA: Absolute neutrophil count is 4050. IMPRESSION: Unchanged from initial note. PLAN: Increase Clozaril from 50 mg at bedtime to 75 mg at bedtime. Maintain rest of the psychotropics unchanged, including Depakote level is therapeutic, Ativan p.r.n., Zyprexa p.r.n., Risperdal 1 mg at bedtime, Neurontin 300 b.i.d., Remeron 15 mg at bedtime and Cogentin 0.5 mg a.m., 1 mg at bedtime. Valproic acid level is therapeutic at 62. MAN Cate MERCEDES MD DR: JESSICA/kayla JOB#: [id number] / [id number]
[2019-01-24 05:43] VITALS: BP 109/72
--- NOTE | 2019-01-24 05:43 | PN ---
DATE: 01/21/2019 PSYCHIATRIC PROGRESS NOTE This late entry 01/21/2019 covers elements not covered in my initial note. SUBJECTIVE: I met with the patient in his room the evening of 01/21/2019. The patient slept 7-3/4 hours previous night. Overall, he is doing better, less paranoid. He does complain of tremors, but otherwise no CV, , pulmonary, eye, ENT system symptoms on review. MENTAL STATUS EXAM: Oriented reasonably. Speech is coherent, abstraction fair, computation impaired, language function intact. Mood and affect is improved, but is still somewhat withdrawn. He has talked at length about his birthday coming up on 01/24/2018. LABORATORY DATA: Reviewed. IMPRESSION: Unchanged from initial note. PLAN: No change from initial note, but we may need to adjust the Cogentin further depending on his tremors. MAN Cate MERCEDES MD DR: JESSICA/kayla JOB#: [id number] / [id number]
[2019-01-24] MEDS: BENZTROPINE MESYLATE 0.5 MG TABLET PO SCH (08:21)
[2019-01-24] MEDS: ASPIRIN ENTERIC COATED 81 MG TABLET.DR. PO SCH (08:21)
[2019-01-24] MEDS: DOCUSATE SODIUM 100 MG CAPSULE PO SCH ×2 (08:21→20:17)
[2019-01-24] MEDS: POLYVINYL ALCOHOL 1.4% OPHTH SOLUTION 15ML BOTTLE. OU SCH ×3 (08:21→20:17)
[2019-01-24] MEDS: CETIRIZINE HCL 10 MG TABLET PO SCH (08:22)
[2019-01-24] MEDS: MULTIVITAMIN with MINERAL TABLET. PO SCH (08:22)
[2019-01-24] MEDS: NICOTINE 7MG PATCH. TD SCH (08:22)
[2019-01-24] MEDS: CHOLECALCIFEROL (VITAMIN D3) 1,000 UNIT TABLET PO SCH (08:22)
[2019-01-24] MEDS: CARBIDOPA/LEVODOPA 25/100MG TABLET PO SCH ×3 (08:22→20:16)
[2019-01-24] MEDS: GABAPENTIN 300 MG CAPSULE. PO SCH ×2 (08:23→20:17)
[2019-01-24 16:16] VITALS: BP 97/59
[2019-01-24] MEDS: MIRTAZAPINE 15 MG TABLET PO SCH (20:16)
[2019-01-24] MEDS: BENZTROPINE MESYLATE 1 MG TABLET PO SCH (20:16)
[2019-01-24] MEDS: DIVALPROEX ER 500 MG TAB.ER.24H PO SCH (20:17)
[2019-01-24] MEDS: risperiDONE 1 MG TABLET. PO SCH (20:17)
[2019-01-24] MEDS: cloZAPine 25 MG TABLET PO SCH (20:17)
[2019-01-24] MEDS: ATORVASTATIN CALCIUM 10 MG TABLET. PO SCH (20:17)
--- NOTE | 2019-01-24 21:49 | PDOC ---
Exam Note: Vahid Note: Please also refer to the separate dictated note~for this date of service dictated separately.~Patient seen individually. Discussed the patient with Nursing staff reviewed the chart.~Reviewed interim history and current functioning. Reviewed vital signs,~Labs/ Radiology~and current medications noted below. Continue current treatment with the changes noted in the dictated addendum note Assessment: Vital Signs/I&O: Vital Signs Date Time Temp Pulse Resp B/P (MAP) Pulse Ox O2 Delivery O2 Flow Rate FiO2 01/24/19 16:16 98.3 93 18 97/59 (72) 97 01/23/19 16:11 Room Air I & O 01/23/19 01/23/19 01/24/19 15:00 23:00 07:00 Intake Total 720 ml 780 ml Balance 720 ml 780 ml Current Medications: I have reviewed the current psychotropics carefully including drug interactions. Risk benefit ratio favors no change other than as noted in my dictated progress note. Diagnosis: Problems: (1) Schizoaffective disorder, bipolar type (2) Anxiety disorder (3) Impulse control disorder (4) Schizophrenia, paranoid, chronic with acute exacerbation (5) Status post CVA (6) Mild cognitive impairment LEO MERCEDES MD Jan 24, 2019 21:48
--- NOTE | 2019-01-25 04:50 | PN ---
DATE: 01/23/2019 PSYCHIATRIC PROGRESS NOTE This late entry 01/23/2019 covers elements not covered in my initial note. SUBJECTIVE: I met with the patient evening of 01/23/2019. I met with him at length in his room. The patient slept 9-1/4 hours previous night. He remains somewhat withdrawn, but not abrasive, aggressive or psychotic. He does complain of tremors. REVIEW OF SYSTEMS: No CV, , pulmonary, eye, ENT system symptoms on review. Reliability varies. MENTAL STATUS EXAM: Oriented to himself and situation. Speech has some latency, coherent. Abstraction fair, computation impaired, language function intact, attention span short. Mood and affect somewhat withdrawn. LABORATORY DATA: Reviewed. IMPRESSION: Unchanged from initial note. PLAN: No change from initial note. MAN Cate MERCEDES MD DR: JESSICA/kayla JOB#: [id number] / [id number]
[2019-01-25 06:35] VITALS: BP 108/70
[2019-01-25] MEDS: MULTIVITAMIN with MINERAL TABLET. PO SCH (08:42)
[2019-01-25] MEDS: CARBIDOPA/LEVODOPA 25/100MG TABLET PO SCH ×3 (08:42→19:33)
[2019-01-25] MEDS: BENZTROPINE MESYLATE 0.5 MG TABLET PO SCH (08:42)
[2019-01-25] MEDS: NICOTINE 7MG PATCH. TD SCH (08:42)
[2019-01-25] MEDS: DOCUSATE SODIUM 100 MG CAPSULE PO SCH ×2 (08:42→19:32)
[2019-01-25] MEDS: POLYVINYL ALCOHOL 1.4% OPHTH SOLUTION 15ML BOTTLE. OU SCH ×3 (08:42→19:32)
[2019-01-25] MEDS: CETIRIZINE HCL 10 MG TABLET PO SCH (08:42)
[2019-01-25] MEDS: CHOLECALCIFEROL (VITAMIN D3) 1,000 UNIT TABLET PO SCH (08:42)
[2019-01-25] MEDS: ASPIRIN ENTERIC COATED 81 MG TABLET.DR. PO SCH (08:42)
[2019-01-25] MEDS: GABAPENTIN 300 MG CAPSULE. PO SCH ×2 (08:44→19:34)
[2019-01-25 15:52] VITALS: BP 99/61
[2019-01-25] MEDS: risperiDONE 1 MG TABLET. PO SCH (19:32)
[2019-01-25] MEDS: cloZAPine 25 MG TABLET PO SCH (19:32)
[2019-01-25] MEDS: DIVALPROEX ER 500 MG TAB.ER.24H PO SCH (19:33)
[2019-01-25] MEDS: MIRTAZAPINE 15 MG TABLET PO SCH (19:33)
[2019-01-25] MEDS: BENZTROPINE MESYLATE 1 MG TABLET PO SCH (19:33)
[2019-01-25] MEDS: ATORVASTATIN CALCIUM 10 MG TABLET. PO SCH (19:33)
--- NOTE | 2019-01-25 21:05 | PDOC ---
Exam Note: Vahid Note: Please also refer to the separate dictated note~for this date of service dictated separately.~Patient seen individually. Discussed the patient with Nursing staff reviewed the chart.~Reviewed interim history and current functioning. Reviewed vital signs,~Labs/ Radiology~and current medications noted below. Continue current treatment with the changes noted in the dictated addendum note Assessment: Vital Signs/I&O: Vital Signs Date Time Temp Pulse Resp B/P (MAP) Pulse Ox O2 Delivery O2 Flow Rate FiO2 01/25/19 15:52 98.6 83 18 99/61 (74) 95 01/23/19 16:11 Room Air I & O 01/24/19 01/24/19 01/25/19 14:59 22:59 06:59 Intake Total 960 ml 240 ml Balance 960 ml 240 ml Current Medications: I have reviewed the current psychotropics carefully including drug interactions. Risk benefit ratio favors no change other than as noted in my dictated progress note. Diagnosis: Problems: (1) Schizoaffective disorder, bipolar type (2) Anxiety disorder (3) Impulse control disorder (4) Schizophrenia, paranoid, chronic with acute exacerbation (5) Status post CVA (6) Mild cognitive impairment LEO MERCEDES MD Jan 25, 2019 21:04
[2019-01-26] MEDS ORDERED: ACET325T21 PO (02:00)
[2019-01-26] MEDS ORDERED: BENZ1TAB5 PO (02:01)
[2019-01-26] MEDS ORDERED: BENZ0.5T32 PO (02:01)
[2019-01-26] MEDS ORDERED: DIVA500T17 PO (02:02)
[2019-01-26] MEDS ORDERED: DOCU100C28 PO (02:02)
[2019-01-26] MEDS ORDERED: CARB1TAB2 PO (02:02)
[2019-01-26] MEDS ORDERED: MAG355OR17 PO (02:03)
[2019-01-26] MEDS ORDERED: METH29OI TP (02:03)
[2019-01-26] MEDS ORDERED: OLAN5TAB5 PO (02:04)
[2019-01-26] MEDS ORDERED: NICO1PAT27 TD (02:04)
[2019-01-26] MEDS ORDERED: CLOZ25TA7 PO (02:05)
--- NOTE | 2019-01-26 03:21 | PN ---
DATE: 01/24/2019 This is a late entry 01/24/2019, covers elements not covered in my initial note. SUBJECTIVE: I met with the patient evening of 01/24/2019. The patient slept 2-1/4 hours previous night. I met with him at length in his room. He had his [birth year] on [birth year] and reminded me of it and very pleased that I wished him a very happy birthday. Overall, tremors are better. REVIEW OF SYSTEMS: No CV, , pulmonary, eye system symptoms on review. MENTAL STATUS EXAM: Oriented to himself and situation. Speech is coherent, abstraction fair, computation impaired, language function intact. Mood and affect is improved, still withdrawn, less psychotic. LABORATORY DATA: Reviewed. IMPRESSION: Unchanged from initial note. PLAN: No change from initial note. MAN Cate MERCEDES MD DR: JESSICA/kayla JOB#: [id number] / [id number]
[2019-01-26 06:18] VITALS: BP_SYST 108; BP_SYST 131; BP_DIAS 69; BP_DIAS 82
[2019-01-26] MEDS: ASPIRIN ENTERIC COATED 81 MG TABLET.DR. PO SCH (09:15)
[2019-01-26] MEDS: DOCUSATE SODIUM 100 MG CAPSULE PO SCH (09:15)
[2019-01-26] MEDS: POLYVINYL ALCOHOL 1.4% OPHTH SOLUTION 15ML BOTTLE. OU SCH (09:15)
[2019-01-26] MEDS: BENZTROPINE MESYLATE 0.5 MG TABLET PO SCH (09:16)
[2019-01-26] MEDS: CETIRIZINE HCL 10 MG TABLET PO SCH (09:16)
[2019-01-26] MEDS: NICOTINE 7MG PATCH. TD SCH (09:16)
[2019-01-26] MEDS: CARBIDOPA/LEVODOPA 25/100MG TABLET PO SCH (09:16)
[2019-01-26] MEDS: MULTIVITAMIN with MINERAL TABLET. PO SCH (09:16)
[2019-01-26] MEDS: CHOLECALCIFEROL (VITAMIN D3) 1,000 UNIT TABLET PO SCH (09:16)
[2019-01-26] MEDS: GABAPENTIN 300 MG CAPSULE. PO SCH (09:18)
--- NOTE | 2019-01-26 21:56 | PDOC ---
Exam Note: Vahid Note: Please also refer to the separate dictated note~for this date of service dictated separately.~Patient seen individually. Discussed the patient with Nursing staff reviewed the chart.~Reviewed interim history and current functioning. Reviewed vital signs,~Labs/ Radiology~and current medications noted below. Continue current treatment with the changes noted in the dictated addendum note Assessment: Vital Signs/I&O: Vital Signs Date Time Temp Pulse Resp B/P (MAP) Pulse Ox O2 Delivery O2 Flow Rate FiO2 01/26/19 06:18 97.3 81 16 108/69 (82) 99 Room Air I & O 01/25/19 01/25/19 01/26/19 14:59 22:59 06:59 Intake Total 720 ml 480 ml 120 ml Balance 720 ml 480 ml 120 ml Current Medications: I have reviewed the current psychotropics carefully including drug interactions. Risk benefit ratio favors no change other than as noted in my dictated progress note. Diagnosis: Problems: (1) Schizoaffective disorder, bipolar type (2) Anxiety disorder (3) Impulse control disorder (4) Schizophrenia, paranoid, chronic with acute exacerbation (5) Status post CVA (6) Mild cognitive impairment LEO MERCEDES MD Jan 26, 2019 21:56
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
--- NOTE | 2019-01-27 11:35 | PN ---
DATE: 01/25/2019 PSYCHIATRIC PROGRESS NOTE This late entry of 01/25/2019 covers elements not covered in my initial note. SUBJECTIVE: I met with the patient in the evening of 01/25/2019 and staffed at treatment team meeting with the entire team in the morning. The patient's appetite is 100%, slept 7-1/2 hours. He seems to be back to baseline per observations of nursing staff, compliant with showers and medication, somewhat withdrawn, but typical for him. No hallucinations, agitation, aggression, or threatening behavior noted. REVIEW OF SYSTEMS: Positive for some tremors and tiredness. No CV, , pulmonary, eye system symptoms on review. MENTAL STATUS EXAM: Oriented to himself and situation. Speech is coherent, has some latency, often responses monosyllabic. Abstraction fair, computation impaired, language function intact, attention span short. Mood and affect less withdrawn, more appropriate. LABORATORY DATA: Reviewed. IMPRESSION: Unchanged from initial note. PLAN: No change from initial note with possible transition back to detention on 01/26/2019. MAN Cate MERCEDES MD DR: JESSICA/kayla JOB#: [id number] / [id number]
== END 2019-01-26 11:15 | DRG 885 ==
LOC: ER 18:17 → GEROPSY 23:19
PROVIDERS: ADMIT Psychiatry & Neurology Psychiatry; ATTEND Psychiatry & Neurology Psychiatry
DX: F20.0 Paranoid schizophrenia (principal); S22.32XA Fracture of one rib, left side, initial encounter for closed fracture; F63.9 Impulse disorder, unspecified; F41.9 Anxiety disorder, unspecified; I10 Essential (primary) hypertension; E04.1 Nontoxic single thyroid nodule; E78.5 Hyperlipidemia, unspecified; F02.80 Dementia in other diseases classified elsewhere, unspecified severity, without behavioral disturbance, psychotic disturbance, mood disturbance, and anxiety; F17.210 Nicotine dependence, cigarettes, uncomplicated; F43.10 Post-traumatic stress disorder, unspecified; G20 Parkinson's disease; G25.0 Essential tremor; I25.10 Atherosclerotic heart disease of native coronary artery without angina pectoris; J43.9 Emphysema, unspecified; M17.10 Unilateral primary osteoarthritis, unspecified knee; R29.6 Repeated falls; W06.XXXA Fall from bed, initial encounter; Z66 Do not resuscitate; Z79.899 Other long term (current) drug therapy; Z86.73 Personal history of transient ischemic attack (TIA), and cerebral infarction without residual deficits; F32.9 Major depressive disorder, single episode, unspecified; G47.00 Insomnia, unspecified; G89.29 Other chronic pain; M19.90 Unspecified osteoarthritis, unspecified site; Y93.89 Activity, other specified; Y92.89 Other specified places as the place of occurrence of the external cause; Y99.8 Other external cause status
CPT/HCPCS: 36415; 70450; 71045; 71260; 72125; 76536; 80048; 80053; 80061; 80076; 80164; 80307; 81001; 82306; 82550; 83036; 83540; 83550; 83690; 83735; 83880; 84436; 84443; 84480; 84484; 85025; 85379; 85610; 85651; 85730; 86592; 93005; 94640; 99406; J7613; J7620; Q9967; 99285-25